=== PATIENT | female | born 1930 | race Caucasian/White ===

== ENCOUNTER 2021-03-27 11:17 | Inpatient (IN) | payer MEDICARE, OTHER ==
--- NOTE | 2021-03-27 11:50 | EDM.PDOC ---
ED HPI GENERAL MEDICAL PROBLEM - General Chief Complaint: General Stated Complaint: FALL Time Seen by Provider: 03/27/21 11:25 Source of Information: Reports: Patient, Family - History of Present Illness INITIAL COMMENTS - FREE TEXT/NARRATIVE: 89-year-old with past medical history significant for lower extremity edema, obesity, recurrent cellulitis, and dependence on supplemental oxygen was brought to the emergency department today by EMS. She normally lives at home alone and is independent. However, she states that she has been falling over the last 2 to 3 days. She is been progressively weak and today slid out of her chair and was not able to get up and called for help. She denies any acute complaints such as fever, chills, upper respiratory symptoms, chest pain, shortness of breath, change in bowel or bladder habits. She does not complain of any orthopedic pain or injuries. He pointed out a large bruise over the right scapula. This appears to be in a healing stage. There was no tenderness to palpation. - Related Data Allergies Allergy/AdvReac Type Severity Reaction Status Date / Time shellfish derived Allergy Cannot Verified 11/01/15 15:07 Remember Home Meds: Home Meds Albuterol [IJP: Albuterol] 2.5 mg NEB Q4HR PRN #25 ml 11/01/15 [Rx] Aspirin [Ecotrin EC] 325 mg PO DAILY 11/01/15 [History] Carboxymethylcellulose Sodium [Refresh Plus 0.5%] 2 drop EYEBOTH BID 11/01/15 [History] Docusate Sodium [Colace] 100 mg PO BEDTIME 11/01/15 [History] Fluconazole [Diflucan] 100 mg PO DAILY PRN 11/01/15 [History] Furosemide 20 mg PO DAILY 11/01/15 [History] Losartan/Hydrochlorothiazide [Losartan-HCTZ 50-12.5 MG] 1 tab PO DAILY 11/01/15 [History] Lutein 10 mg PO DAILY 11/01/15 [History] Metoprolol Succinate 50 mg PO DAILY 11/01/15 [History] Multivitamin [Multi-Vitamin Daily] 1 tab PO DAILY 11/01/15 [History] Past Medical History Cardiovascular History: Reports: Hypertension Respiratory History: Reports: SOB [employer] History: Reports: Other [employer] History: Oncologic (Cancer) History: Reports: Breast - Past Surgical History Oncologic Surgical History: Reports: Other (See Below) Social & Family History - Family History Family Medical History: No Pertinent Family History ED ROS GENERAL - Review of Systems Review Of Systems: See Below Constitutional: Reports: Weakness HEENT: Reports: No Symptoms Respiratory: Reports: No Symptoms Cardiovascular: Reports: No Symptoms Endocrine: Reports: No Symptoms GI/Abdominal: Reports: No Symptoms : Reports: No Symptoms Musculoskeletal: Reports: No Symptoms Skin: Reports: No Symptoms Neurological: Reports: No Symptoms Psychiatric: Reports: No Symptoms Hematologic/Lymphatic: Reports: No Symptoms Immunologic: Reports: No Symptoms ED EXAM, GENERAL - Physical Exam Exam: See Below Exam Limited By: No Limitations General Appearance: Alert, Mild Distress Eye Exam: Bilateral Eye: EOMI Head: Atraumatic, Normocephalic Neck: Normal Inspection Respiratory/Chest: Decreased Breath Sounds, Crackles Cardiovascular: Gallop/S3, Other (Heart sounds are distant and difficult to auscultate) GI/Abdominal: Normal Bowel Sounds, Soft, Non-Tender Back Exam: Normal Inspection Extremities: Pedal Edema, Other (Significant bilateral lower extremity pitting edema with swelling) Neurological: Alert, Oriented, Normal Cognition, Other (Patient is generally weak but she was able to use her upper body strength to help us pull her up out of the bed. She gripped my fingers with both hands and pulled herself up with my help) Psychiatric: Depressed Mood Skin Exam: Warm, Dry Course - Vital Signs Text/Narrative:: Review of chest x-ray shows patchy consolidations consistent with pneumonia in the left lower lung. Physical exam is consistent with this diagnosis. Review of EKG is difficult secondary to very poor baseline quality and patient movement. However, you have labs shows hyperkalemia at 6.3. Patient will begin treatment for community-acquired pneumonia with ceftriaxone and azithromycin. She will receive calcium gluconate, IV fluids, and Lasix for hyperkalemia. Patient will be admitted with telemetry for further treatment and monitoring. - Orders/Labs/Meds Orders: Active Orders 24 hr Category Date Time Status Patient Status Manage Transfer [TRANSFER] Routine ADT 03/27/21 13:30 Active Patient Status [ADT] Routine ADT 03/27/21 13:34 Active Antiembolic Devices [RC] .Routine Care 03/27/21 13:35 Active EKG Documentation Completion [RC] ASDIRECTED Care 03/27/21 11:45 Active Insert Urinary Catheter [OM.PC] Q24H Care 03/27/21 11:30 Ordered Oxygen Therapy [RC] CONTINUOUS Care 03/27/21 13:35 Active Pulse Oximetry [RC] CONTINUOUS Care 03/27/21 13:38 Active Urinary Catheter Assessment [RC] QSHIFT Care 03/27/21 11:30 Active VTE/DVT Education [RC] Click to Edit Care 03/27/21 13:35 Active Vital Signs [RC] Q4H Care 03/27/21 13:34 Active Heart Healthy Diet [DIET] Diet 03/27/21 Dinner Ordered Azithromycin [Zithromax] 500 mg Med 03/27/21 12:47 Active Sodium Chloride 0.9% [Normal Saline AdvBag] 250 ml IV ONETIME Sodium Chloride 0.9% [Normal Saline] 1,000 ml Med 03/27/21 12:45 Active IV ASDIRECTED DVT/VTE Prophylaxis Reflex [OM.PC] Per Unit Routine Oth 03/27/21 13:34 Ordered Resuscitation Status Routine Resus Stat 03/27/21 13:32 Ordered EKG 12 Lead [EK] Routine Ther 03/27/21 11:44 Ordered Medication Orders Sodium Chloride (Normal Saline) 1,000 mls @ 125 mls/hr IV ASDIRECTED ROBERT Azithromycin 500 mg/ Sodium (Chloride) 250 mls @ 250 mls/hr IV ONETIME ONE Stop: 03/27/21 13:46 Last Admin: 03/27/21 12:58 Dose: 250 mls/hr Documented by: DIFFCAL Labs: Laboratory Tests 03/27/21 03/27/21 03/27/21 Range/Units 11:30 11:44 11:44 WBC 6.8 (3.0-10.3) x10-3/uL RBC 3.46 L (3.60-5.20) x10(6)uL Hgb 10.7 L (11.4-15.5) g/dL Hct 34.6 (34.2-48.2) % MCV 99.8 (76.7-100.5) fL MCH 30.9 (23.9-33.9) pg MCHC 31.0 L (31.9-34.8) g/dL RDW 14.3 (12.3-16.5) % Plt Count 168 (151-488) x10(3)uL MPV 7.6 (7.1-12.4) fL Neut % (Auto) 75.1 (30.8-76.2) % Lymph % (Auto) 13.4 L (18.4-52.1) % Parke % (Auto) 9.6 (4.4-15.7) % Eos % (Auto) 1.3 (0.6-8.1) % Baso % (Auto) 0.6 (0.2-1.5) % Neut # (Auto) 5.1 (1.5-6.3) x10-3/uL Lymph # (Auto) 0.9 L (1.0-4.4) x10-3/uL Parke # (Auto) 0.7 (0.3-1.0) x10-3/uL Eos # (Auto) 0.1 (0.0-0.8) x10-3/uL Baso # (Auto) 0.0 (0.0-0.1) x10-3/uL Sodium 142 (135-145) mmol/L Potassium 6.3 H* (3.5-5.3) mmol/L Chloride 101 (100-110) mmol/L Carbon Dioxide 43 H* (21-32) mmol/L BUN 51 H (7-18) mg/dL Creatinine 1.8 H (0.55-1.02) mg/dL Est Cr Clr Drug Dosing TNP Estimated GFR (MDRD) 26 L (>60) BUN/Creatinine Ratio 28.3 H (9-20) Glucose 160 H (80-116) mg/dL Calcium 9.6 (8.6-10.2) mg/dL Total Bilirubin 0.3 (0.1-1.3) mg/dL AST 20 (5-25) IU/L ALT 24 (12-36) U/L Alkaline Phosphatase 66 (56-112) IU/L Troponin I (4.0-60.3) pg/mL NT-Pro-B Natriuret Pep (<=450) pg/mL Total Protein 7.1 (6.0-8.0) g/dL Albumin 2.9 (2.9-4.5) g/dL Globulin 4.2 g/dL Albumin/Globulin Ratio 0.7 Urine Color (YELLOW) Urine Appearance (CLEAR) Urine pH (5.0-6.5) Ur Specific [place] (1.010-1.025) Urine Protein (NEGATIVE) mg/dL Urine Glucose (UA) (NORMAL) mg/dL Urine Ketones (NEGATIVE) mg/dL Urine Occult Blood (NEGATIVE) Urine Nitrite (NEGATIVE) Urine Bilirubin (NEGATIVE) Urine Urobilinogen (NEGATIVE) mg/dL Ur Leukocyte Esterase (NEGATIVE) U Hyaline Cast (Auto) (NS) Urine RBC (0-5) Urine WBC (0-5) Ur Squamous Epith Cells (NS,R,O) Urine Bacteria (NS) Influenza Type A RNA Negative (NEGATIVE) Influenza Type B RNA Negative (NEGATIVE) SARS-CoV-2 RNA (SHERON) Negative (NEGATIVE) 03/27/21 03/27/21 Range/Units 11:44 12:00 WBC (3.0-10.3) x10-3/uL RBC (3.60-5.20) x10(6)uL Hgb (11.4-15.5) g/dL Hct (34.2-48.2) % MCV (76.7-100.5) fL MCH (23.9-33.9) pg MCHC (31.9-34.8) g/dL RDW (12.3-16.5) % Plt Count (151-488) x10(3)uL MPV (7.1-12.4) fL Neut % (Auto) (30.8-76.2) % Lymph % (Auto) (18.4-52.1) % Parke % (Auto) (4.4-15.7) % Eos % (Auto) (0.6-8.1) % Baso % (Auto) (0.2-1.5) % Neut # (Auto) (1.5-6.3) x10-3/uL Lymph # (Auto) (1.0-4.4) x10-3/uL Parke # (Auto) (0.3-1.0) x10-3/uL Eos # (Auto) (0.0-0.8) x10-3/uL Baso # (Auto) (0.0-0.1) x10-3/uL Sodium (135-145) mmol/L Potassium (3.5-5.3) mmol/L Chloride (100-110) mmol/L Carbon Dioxide (21-32) mmol/L BUN (7-18) mg/dL Creatinine (0.55-1.02) mg/dL Est Cr Clr Drug Dosing Estimated GFR (MDRD) (>60) BUN/Creatinine Ratio (9-20) Glucose (80-116) mg/dL Calcium (8.6-10.2) mg/dL Total Bilirubin (0.1-1.3) mg/dL AST (5-25) IU/L ALT (12-36) U/L Alkaline Phosphatase (56-112) IU/L Troponin I 14.6 (4.0-60.3) pg/mL NT-Pro-B Natriuret Pep 313 (<=450) pg/mL Total Protein (6.0-8.0) g/dL Albumin (2.9-4.5) g/dL Globulin g/dL Albumin/Globulin Ratio Urine Color Yellow (YELLOW) Urine Appearance Clear (CLEAR) Urine pH 5.0 (5.0-6.5) Ur Specific [place] 1.015 (1.010-1.025) Urine Protein Negative (NEGATIVE) mg/dL Urine Glucose (UA) Normal (NORMAL) mg/dL Urine Ketones Negative (NEGATIVE) mg/dL Urine Occult Blood Trace (NEGATIVE) Urine Nitrite Negative (NEGATIVE) Urine Bilirubin Negative (NEGATIVE) Urine Urobilinogen Normal (NEGATIVE) mg/dL Ur Leukocyte Esterase Negative (NEGATIVE) U Hyaline Cast (Auto) Moderate H (NS) Urine RBC 30-40 H (0-5) Urine WBC 0-5 (0-5) Ur Squamous Epith Cells Occasional (NS,R,O) Urine Bacteria Few H (NS) Influenza Type A RNA (NEGATIVE) Influenza Type B RNA (NEGATIVE) SARS-CoV-2 RNA (SHERON) (NEGATIVE) Meds: Medications Generic Name Dose Route Start Last Admin Trade Name Freq PRN Reason Stop Dose Admin Sodium Chloride 1,000 mls @ 125 mls/hr 03/27/21 12:45 Normal Saline IV ASDIRECTED ROBERT Azithromycin 500 mg/ Sodium 250 mls @ 250 mls/hr 03/27/21 12:47 03/27/21 12:58 Chloride IV 03/27/21 13:46 250 mls/hr ONETIME ONE Administration Discontinued Medications Generic Name Dose Route Start Last Admin Trade Name Freq PRN Reason Stop Dose Admin Calcium Gluconate 1 gm 03/27/21 12:45 03/27/21 13:00 Calcium Gluconate 10% 1 Gm/10 Ml Sdv IVPUSH 03/27/21 12:46 1 gm ONETIME ONE Administration Furosemide 40 mg 03/27/21 12:45 03/27/21 12:59 Furosemide 40 Mg/4 Ml Vial IVPUSH 03/27/21 12:46 40 mg NOW ONE Administration Ceftriaxone Sodium 1 gm/ 50 mls @ 200 mls/hr 03/27/21 12:46 03/27/21 13:16 Sodium Chloride IV 03/27/21 13:00 200 mls/hr ONETIME ONE Administration Departure - Departure Time of Disposition: 13:44 Disposition: Admitted As Inpatient 67 Condition: Fair Clinical Impression: Community acquired pneumonia, Hyperkalemia, Acute kidney injury, Supplemental oxygen dependent, Hypercapnia - Discharge Information *PRESCRIPTION DRUG MONITORING PROGRAM REVIEWED*: Not Applicable *COPY OF PRESCRIPTION DRUG MONITORING REPORT IN PATIENT NATALIA: Not Applicable Forms: ED Department Discharge - My Orders Last 24 Hours: My Active Orders 03/27/21 11:30 Insert Urinary Catheter [OM.PC] Q24H Urinary Catheter Assessment [RC] QSHIFT 03/27/21 11:44 EKG 12 Lead [EK] Routine 03/27/21 11:45 EKG Documentation Completion [RC] ASDIRECTED 03/27/21 12:45 Sodium Chloride 0.9% [Normal Saline] 1,000 ml IV ASDIRECTED 03/27/21 12:47 Azithromycin [Zithromax] 500 mg Sodium Chloride 0.9% [Normal Saline AdvBag] 250 ml IV ONETIME 03/27/21 13:30 Patient Status Manage Transfer [TRANSFER] Routine 03/27/21 13:32 Resuscitation Status Routine 03/27/21 13:34 Patient Status [ADT] Routine Vital Signs [RC] Q4H DVT/VTE Prophylaxis Reflex [OM.PC] Per Unit Routine 03/27/21 13:35 Antiembolic Devices [RC] .Routine Oxygen Therapy [RC] CONTINUOUS VTE/DVT Education [RC] Click to Edit 03/27/21 13:38 Pulse Oximetry [RC] CONTINUOUS 03/27/21 Dinner Heart Healthy Diet [DIET] - Assessment/Plan Last 24 Hours: My Active Orders 03/27/21 11:30 Insert Urinary Catheter [OM.PC] Q24H Urinary Catheter Assessment [RC] QSHIFT 03/27/21 11:44 EKG 12 Lead [EK] Routine 03/27/21 11:45 EKG Documentation Completion [RC] ASDIRECTED 03/27/21 12:45 Sodium Chloride 0.9% [Normal Saline] 1,000 ml IV ASDIRECTED 03/27/21 12:47 Azithromycin [Zithromax] 500 mg Sodium Chloride 0.9% [Normal Saline AdvBag] 250 ml IV ONETIME 03/27/21 13:30 Patient Status Manage Transfer [TRANSFER] Routine 03/27/21 13:32 Resuscitation Status Routine 03/27/21 13:34 Patient Status [ADT] Routine Vital Signs [RC] Q4H DVT/VTE Prophylaxis Reflex [OM.PC] Per Unit Routine 03/27/21 13:35 Antiembolic Devices [RC] .Routine Oxygen Therapy [RC] CONTINUOUS VTE/DVT Education [RC] Click to Edit 03/27/21 13:38 Pulse Oximetry [RC] CONTINUOUS 03/27/21 Dinner Heart Healthy Diet [DIET]
[2021-03-27 12:34] LABS: CORONAVIRUS COVID-19 NAA NEGATIVE (NEGATIVE)
[2021-03-27] MEDS ORDERED: Calcium Gluconate 10% 1 GM/10 ML SDV IVPUSH ONE ×2 (12:45→23:35)
[2021-03-27] MEDS ORDERED: Sodium Chloride 0.9% 1,000 ML IV SCH (12:45)
[2021-03-27] MEDS ORDERED: Furosemide 40 MG/4 ML VIAL IVPUSH ONE ×2 (12:45→23:37)
[2021-03-27] MEDS ORDERED: cefTRIAXone 1 GM in Sodium Chloride 0.9% 50 ML IV ONE (12:46)
[2021-03-27] MEDS ORDERED: Azithromycin 500 MG in Sodium Chloride 0.9% 250 ML IV ONE (12:47)
--- NOTE | 2021-03-27 13:20 | CR ---
INDICATION: Cough. CHEST, ONE VIEW: AP upright portable view of the chest, 03/27/21, was compared with 02/25/10, and revealed increased density at the left costophrenic angle and behind the heart with blunting of the costophrenic angle, suggesting the possibility of minimal pneumonia and pleuritis in that area. Pulmonary vasculature in the upper lung garg appears slightly prominent, especially on the left, raising the question of a mild or early CHF. This should be correlated clinically. This is especially true since the heart is not grossly enlarged. However, other cause of pulmonary vascular congestion could be present. The aorta is mildly tortuous. The lungs appear to be somewhat hyperaerated. IMPRESSION: 1. Pneumonia and pleuritis suggested at the left costophrenic angle and lower lobe. 2. ASHD with possible mild CHF, although other cause of pulmonary vascular congestion should be considered. 3. Possible COPD also suggested on previous chest x-ray. Report was called to Dr. Davis at approximately 1255 hours, 03/27/21. [facility]
--- NOTE | 2021-03-27 13:50 | PCM.EKG ---
#1 Interpretation EKG Date: 03/27/21 Time: 12:21 EKG Interpretation Comments: This EKG is unreliable due to poor baseline quality and patient movement.
--- NOTE | 2021-03-27 15:23 | PCM.EKG ---
#1 Interpretation EKG Date: 03/27/21 Time: 15:11 EKG Interpretation Comments: Normal sinus rhythm, rate 65, likely normal axis, probable right bundle branch block, however, still poor baseline quality though significantly improved from previous EKG, peaked T waves prominent in the anterior lateral and lateral leads, poor baseline quality makes ST segment difficult to modify but there are no obvious ST-T segment abnormalities in contiguous leads
--- NOTE | 2021-03-27 18:25 | PCM.HP.2 ---
H&P History of Present Illness - General Date of Service: 03/27/21 Admit Problem/Dx: Admission Diagnosis/Problem Admission Diagnosis/Problem Weakness Source of Information: Patient, Family, Provider - History of Present Illness Initial Comments - Free Text/Narative: Routine by the family, because of generalized weakness, frequent falls and jitteriness. For about a week she's been more dependent at home. She's had no GI or urinary symptoms, and there was no report of any loss of consciousness or he ad injury due to falls. Tonight she complains of knee pain. The restlessness, worsening last 2 days, she'll sleep well. Additionally she's had muscle twitches which are unexplained. Luisa has a history of COPD, CHF, obesity, hypertension, and lower extremity edema, with recurrent cellulitis. right knee Pain Score (Numeric/FACES): 5 - Related Data Allergies/Adverse Reactions: Allergies Allergy/AdvReac Type Severity Reaction Status Date / Time shellfish derived Allergy Cannot Verified 11/01/15 15:07 Remember Home Medications: Home Meds Carboxymethylcellulose Sodium [Refresh Plus 0.5%] 2 drop EYEBOTH BID PRN 11/01/15 [History] Docusate Sodium [Colace] 100 mg PO BID 11/01/15 [History] Fluconazole [Diflucan] 100 mg PO MOWEFR 11/01/15 [History] Lutein 10 mg PO BEDTIME 11/01/15 [History] Acetaminophen [Tylenol Extra Strength] 500 mg PO DAILY 03/27/21 [History] Albuterol Sulfate 3 ml IH Q6H PRN 03/27/21 [History] Albuterol [Proventil HFA] 2 puff IH Q6H PRN 03/27/21 [History] Amoxicillin 500 mg PO BID 03/27/21 [History] Aspirin [Halfprin] 81 mg PO DAILY 03/27/21 [History] Cholecalciferol (Vitamin D3) [Vitamin D3] 50 mcg PO DAILY@1200 03/27/21 [History] Cyanocobalamin (Vitamin B-12) [Vitamin B-12] 1,000 mcg PO DAILY 03/27/21 [History] Fluticasone Propionate [Flonase] 2 spray NASBOTH DAILY PRN 03/27/21 [History] Magnesium Chloride [Mag-64] 64 mg PO DAILY@1200 03/27/21 [History] Multivit-Min/FA/Lycopen/Lutein [Centrum Silver Tablet] 1 tab PO DAILY 03/27/21 [History] Potassium Chloride [Klor-Con 10] 10 meq PO BIDMEALS 03/27/21 [History] Sodium Chloride 0.65% [[place] Saline] 1 spray NASBOTH ASDIRECTED PRN 03/27/21 [History] Torsemide 40 mg PO DAILY 03/27/21 [History] carvediloL [Carvedilol] 12.5 mg PO BIDMEALS 03/27/21 [History] Past Medical History HEENT History: Reports: Impaired Vision Cardiovascular History: Reports: Heart Failure, Hypertension Respiratory History: Reports: SOB Genitourinary History: Reports: None [employer] HISTORIAN History: Reports: Other OB/BYN History: Musculoskeletal History: Reports: None Neurological History: Reports: None Psychiatric History: Reports: None Endocrine/Metabolic History: Reports: Obesity/BMI 30+ Hematologic History: Reports: None Oncologic (Cancer) History: Reports: Breast, Other (See Below) Other Oncologic History: vaginal Dermatologic History: Reports: Chronic Cellulitis - Infectious Disease History Infectious Disease History: Reports: Chicken Pox - Past Surgical History Cardiovascular Surgical History: Reports: None Respiratory Surgical History: Reports: None Female Surgical History: Reports: Breast Biopsy, Hysterectomy Neurological Surgical History: Reports: None Musculoskeletal Surgical History: Reports: None Oncologic Surgical History: Reports: Other (See Below) Other Oncologic Surgeries/Procedures: LUMPECTOMY Dermatological Surgical History: Reports: None Social & Family History - Family History Family Medical History: No Pertinent Family History - Tobacco Use Tobacco Use Status *Q: Never Tobacco User Second Hand Smoke Exposure: No - Caffeine Use Caffeine Use: Reports: Coffee - Recreational Drug Use Recreational Drug Use: No H&P Review of Systems - Review of Systems: Review Of Systems: Comprehensive ROS is negative, except as noted in HPI. Exam - Exam Exam: See Below - Vital Signs Vital Signs: Last Vital Signs Temp 96.4 F L 03/27/21 13:55 Pulse 64 03/27/21 15:34 Resp 22 H 03/27/21 15:34 BP 138/50 L 03/27/21 13:55 Pulse Ox 91 L 03/27/21 15:34 Weight: 125.055 kg - Exam Quality Assessment: Supplemental Oxygen General: Alert, Oriented, 4 HEENT: PERRLA, Hearing Intact, Mucosa Moist & [place], Nares Patent, Normal Nasal Septum, Posterior Pharynx Clear, Conjunctiva Clear, EOMI, EACs Clear, TMs Clear Neck: Supple, Trachea Midline, 2 Lungs: Normal Respiratory Effort, Rales Cardiovascular: Regular Rate, Regular Rhythm GI/Abdominal Exam: Normal Bowel Sounds, Soft, Non-Tender, No Organomegaly, No Distention, No Abnormal Bruit, No Mass, Pelvis Stable (Female) Exam: Deferred Rectal (Female) Exam: Deferred Back Exam: Normal Inspection, Full Range of Motion, NT Extremities: Normal Capillary Refill, Pedal Edema, Leg Pain Skin: Warm, Dry, Intact Neurological: Cranial Nerves Intact, Reflexes Equal Bilateral Neuro Extensive - Mental Status: Alert, Oriented x3, Normal Mood/Affect, Normal Cognition Neuro Extensive - Motor, Sensory, Reflexes: CN II-XII Intact, Normal Gait, Normal Reflexes Psychiatric: Alert, Normal Affect, Normal Mood - Patient Data Lab Results Last 24 hrs: Laboratory Results - last 24 hr 03/27/21 03/27/21 03/27/21 Range/Units 11:30 11:44 11:44 WBC 6.8 (3.0-10.3) x10-3/uL RBC 3.46 L (3.60-5.20) x10(6)uL Hgb 10.7 L (11.4-15.5) g/dL Hct 34.6 (34.2-48.2) % MCV 99.8 (76.7-100.5) fL MCH 30.9 (23.9-33.9) pg MCHC 31.0 L (31.9-34.8) g/dL RDW 14.3 (12.3-16.5) % Plt Count 168 (151-488) x10(3)uL MPV 7.6 (7.1-12.4) fL Neut % (Auto) 75.1 (30.8-76.2) % Lymph % (Auto) 13.4 L (18.4-52.1) % [place] % (Auto) 9.6 (4.4-15.7) % Eos % (Auto) 1.3 (0.6-8.1) % Baso % (Auto) 0.6 (0.2-1.5) % Neut # (Auto) 5.1 (1.5-6.3) x10-3/uL Lymph # (Auto) 0.9 L (1.0-4.4) x10-3/uL [place] # (Auto) 0.7 (0.3-1.0) x10-3/uL Eos # (Auto) 0.1 (0.0-0.8) x10-3/uL Baso # (Auto) 0.0 (0.0-0.1) x10-3/uL Sodium 142 (135-145) mmol/L Potassium 6.3 H* (3.5-5.3) mmol/L Chloride 101 (100-110) mmol/L Carbon Dioxide 43 H* (21-32) mmol/L BUN 51 H (7-18) mg/dL Creatinine 1.8 H (0.55-1.02) mg/dL Est Cr Clr Drug Dosing TNP Estimated GFR (MDRD) 26 L (>60) BUN/Creatinine Ratio 28.3 H (9-20) Glucose 160 H (80-116) mg/dL Calcium 9.6 (8.6-10.2) mg/dL Total Bilirubin 0.3 (0.1-1.3) mg/dL AST 20 (5-25) IU/L ALT 24 (12-36) U/L Alkaline Phosphatase 66 (56-112) IU/L Troponin I (4.0-60.3) pg/mL NT-Pro-B Natriuret Pep (<=450) pg/mL Total Protein 7.1 (6.0-8.0) g/dL Albumin 2.9 (2.9-4.5) g/dL Globulin 4.2 g/dL Albumin/Globulin Ratio 0.7 Urine Color (YELLOW) Urine Appearance (CLEAR) Urine pH (5.0-6.5) Ur Specific [place] (1.010-1.025) Urine Protein (NEGATIVE) mg/dL Urine Glucose (UA) (NORMAL) mg/dL Urine Ketones (NEGATIVE) mg/dL Urine Occult Blood (NEGATIVE) Urine Nitrite (NEGATIVE) Urine Bilirubin (NEGATIVE) Urine Urobilinogen (NEGATIVE) mg/dL Ur Leukocyte Esterase (NEGATIVE) U Hyaline Cast (Auto) (NS) Urine RBC (0-5) Urine WBC (0-5) Ur Squamous Epith Cells (NS,R,O) Urine Bacteria (NS) Influenza Type A RNA Negative (NEGATIVE) Influenza Type B RNA Negative (NEGATIVE) SARS-CoV-2 RNA (SHERON) Negative (NEGATIVE) 03/27/21 03/27/21 03/27/21 Range/Units 11:44 12:00 16:17 WBC (3.0-10.3) x10-3/uL RBC (3.60-5.20) x10(6)uL Hgb (11.4-15.5) g/dL Hct (34.2-48.2) % MCV (76.7-100.5) fL MCH (23.9-33.9) pg MCHC (31.9-34.8) g/dL RDW (12.3-16.5) % Plt Count (151-488) x10(3)uL MPV (7.1-12.4) fL Neut % (Auto) (30.8-76.2) % Lymph % (Auto) (18.4-52.1) % [place] % (Auto) (4.4-15.7) % Eos % (Auto) (0.6-8.1) % Baso % (Auto) (0.2-1.5) % Neut # (Auto) (1.5-6.3) x10-3/uL Lymph # (Auto) (1.0-4.4) x10-3/uL [place] # (Auto) (0.3-1.0) x10-3/uL Eos # (Auto) (0.0-0.8) x10-3/uL Baso # (Auto) (0.0-0.1) x10-3/uL Sodium (135-145) mmol/L Potassium 5.9 H (3.5-5.3) mmol/L Chloride (100-110) mmol/L Carbon Dioxide (21-32) mmol/L BUN (7-18) mg/dL Creatinine (0.55-1.02) mg/dL Est Cr Clr Drug Dosing Estimated GFR (MDRD) (>60) BUN/Creatinine Ratio (9-20) Glucose (80-116) mg/dL Calcium (8.6-10.2) mg/dL Total Bilirubin (0.1-1.3) mg/dL AST (5-25) IU/L ALT (12-36) U/L Alkaline Phosphatase (56-112) IU/L Troponin I 14.6 (4.0-60.3) pg/mL NT-Pro-B Natriuret Pep 313 (<=450) pg/mL Total Protein (6.0-8.0) g/dL Albumin (2.9-4.5) g/dL Globulin g/dL Albumin/Globulin Ratio Urine Color Yellow (YELLOW) Urine Appearance Clear (CLEAR) Urine pH 5.0 (5.0-6.5) Ur Specific [place] 1.015 (1.010-1.025) Urine Protein Negative (NEGATIVE) mg/dL Urine Glucose (UA) Normal (NORMAL) mg/dL Urine Ketones Negative (NEGATIVE) mg/dL Urine Occult Blood Trace (NEGATIVE) Urine Nitrite Negative (NEGATIVE) Urine Bilirubin Negative (NEGATIVE) Urine Urobilinogen Normal (NEGATIVE) mg/dL Ur Leukocyte Esterase Negative (NEGATIVE) U Hyaline Cast (Auto) Moderate H (NS) Urine RBC 30-40 H (0-5) Urine WBC 0-5 (0-5) Ur Squamous Epith Cells Occasional (NS,R,O) Urine Bacteria Few H (NS) Influenza Type A RNA (NEGATIVE) Influenza Type B RNA (NEGATIVE) SARS-CoV-2 RNA (SHERON) (NEGATIVE) 03/27/21 Range/Units 16:17 WBC (3.0-10.3) x10-3/uL RBC (3.60-5.20) x10(6)uL Hgb (11.4-15.5) g/dL Hct (34.2-48.2) % MCV (76.7-100.5) fL MCH (23.9-33.9) pg MCHC (31.9-34.8) g/dL RDW (12.3-16.5) % Plt Count (151-488) x10(3)uL MPV (7.1-12.4) fL Neut % (Auto) (30.8-76.2) % Lymph % (Auto) (18.4-52.1) % [place] % (Auto) (4.4-15.7) % Eos % (Auto) (0.6-8.1) % Baso % (Auto) (0.2-1.5) % Neut # (Auto) (1.5-6.3) x10-3/uL Lymph # (Auto) (1.0-4.4) x10-3/uL [place] # (Auto) (0.3-1.0) x10-3/uL Eos # (Auto) (0.0-0.8) x10-3/uL Baso # (Auto) (0.0-0.1) x10-3/uL Sodium (135-145) mmol/L Potassium (3.5-5.3) mmol/L Chloride (100-110) mmol/L Carbon Dioxide (21-32) mmol/L BUN (7-18) mg/dL Creatinine (0.55-1.02) mg/dL Est Cr Clr Drug Dosing Estimated GFR (MDRD) (>60) BUN/Creatinine Ratio (9-20) Glucose (80-116) mg/dL Calcium (8.6-10.2) mg/dL Total Bilirubin (0.1-1.3) mg/dL AST (5-25) IU/L ALT (12-36) U/L Alkaline Phosphatase (56-112) IU/L Troponin I 16.1 (4.0-60.3) pg/mL NT-Pro-B Natriuret Pep (<=450) pg/mL Total Protein (6.0-8.0) g/dL Albumin (2.9-4.5) g/dL Globulin g/dL Albumin/Globulin Ratio Urine Color (YELLOW) Urine Appearance (CLEAR) Urine pH (5.0-6.5) Ur Specific [place] (1.010-1.025) Urine Protein (NEGATIVE) mg/dL Urine Glucose (UA) (NORMAL) mg/dL Urine Ketones (NEGATIVE) mg/dL Urine Occult Blood (NEGATIVE) Urine Nitrite (NEGATIVE) Urine Bilirubin (NEGATIVE) Urine Urobilinogen (NEGATIVE) mg/dL Ur Leukocyte Esterase (NEGATIVE) U Hyaline Cast (Auto) (NS) Urine RBC (0-5) Urine WBC (0-5) Ur Squamous Epith Cells (NS,R,O) Urine Bacteria (NS) Influenza Type A RNA (NEGATIVE) Influenza Type B RNA (NEGATIVE) SARS-CoV-2 RNA (SHERON) (NEGATIVE) Result Diagrams: 03/27/21 11:44 03/27/21 16:17 Sepsis Event Note - Evaluation Sepsis Screening Result: No Definite Risk - Focused Exam Vital Signs: Vital Signs Temp Pulse Resp BP Pulse Ox Pulse Ox 03/27/21 15:34 64 22 H 91 L 03/27/21 13:55 96.4 F L 61 16 138/50 L 94 L 94 L 03/27/21 11:45 96.4 F L 63 18 154/70 H 96 - Problem List (1) Obesity SNOMED Code(s): 391950142, 765790256 ICD Code: E66.9 - OBESITY, UNSPECIFIED Status: Acute Current Visit: Yes Qualifiers: Obesity type: due to excess calories (2) CHF (congestive heart failure) SNOMED Code(s): 71812370 ICD Code: I50.9 - HEART FAILURE, UNSPECIFIED Status: Acute Current Visit: Yes Qualifiers: Heart failure type: diastolic (3) CO2 narcosis SNOMED Code(s): 833955911, 568076041 ICD Code: R06.89 - OTHER ABNORMALITIES OF BREATHING Status: Acute Current Visit: Yes (4) COPD (chronic obstructive pulmonary disease) SNOMED Code(s): 45325528 ICD Code: J44.9 - CHRONIC OBSTRUCTIVE PULMONARY DISEASE, UNSPECIFIED Status: Acute Current Visit: Yes Qualifiers: COPD type: chronic bronchitis (5) Acute kidney injury SNOMED Code(s): 68133667, 88579588 ICD Code: N17.9 - ACUTE KIDNEY FAILURE, UNSPECIFIED Status: Acute Current Visit: Yes (6) Community acquired pneumonia SNOMED Code(s): 160453064 ICD Code: J18.9 - PNEUMONIA, UNSPECIFIED ORGANISM Status: Acute Current Visit: Yes Qualifiers: Laterality: left (7) Hypercapnia SNOMED Code(s): 20433645 ICD Code: R06.89 - OTHER ABNORMALITIES OF BREATHING Status: Acute Current Visit: Yes (8) Hyperkalemia SNOMED Code(s): 19479137 ICD Code: E87.5 - HYPERKALEMIA Status: Acute Current Visit: Yes (9) Supplemental oxygen dependent SNOMED Code(s): 621673635144 ICD Code: Z99.81 - DEPENDENCE ON SUPPLEMENTAL OXYGEN Status: Acute Current Visit: Yes Problem List Initiated/Reviewed/Updated: Yes Orders Last 24hrs: Active Orders 24 hr Category Date Time Status Patient Status [ADT] Routine ADT 03/27/21 13:34 Active Mitchell Catheter Insertion [Insert Urinary Catheter] [OM. Care 03/28/21 13:55 Ordered PC] Q24H Mitchell Catheter Insertion [Insert Urinary Catheter] [OM. Care 03/29/21 13:55 Ordered PC] Q24H Mitchell Catheter Insertion [Insert Urinary Catheter] [OM. Care 03/30/21 13:55 Ordered PC] Q24H Mitchell Catheter Insertion [Insert Urinary Catheter] [OM. Care 03/31/21 13:55 Ordered PC] Q24H Mitchell Catheter Insertion [Insert Urinary Catheter] [OM. Care 04/01/21 13:55 Ordered PC] Q24H Mitchell Catheter Insertion [Insert Urinary Catheter] [OM. Care 04/02/21 13:55 Ordered PC] Q24H [place] Catheter Insertion [Insert Urinary Catheter] [OM. Care 03/27/21 13:55 Ordered PC] Q24H Oxygen Therapy [RC] CONTINUOUS Care 03/27/21 13:35 Active Pulse Oximetry [RC] CONTINUOUS Care 03/27/21 13:38 Active Telemetry Monitoring [Cardiac Monitoring] [RC] .As Care 03/27/21 16:48 Active Directed Urinary Catheter Assessment [RC] QSHIFT Care 03/27/21 14:53 Active VTE/DVT Education [RC] Click to Edit Care 03/27/21 13:35 Active Vital Signs [RC] 08,12,16,20,00,04 Care 03/27/21 13:34 Active Heart Healthy Diet [DIET] Diet 03/27/21 Dinner Ordered BASIC METABOLIC PANEL,BMP [CHEM] AM Lab 03/28/21 05:11 Ordered CBC WITH AUTO DIFF [HEME] AM Lab 03/28/21 05:11 Ordered PRO B-TYPE NATRIUR PEPT,BNPPRO [CHEM] DAILY Lab 03/28/21 05:11 Ordered Sodium Chloride 0.9% [Normal Saline] 1,000 ml Med 03/27/21 12:45 Active IV ASDIRECTED DVT/VTE Prophylaxis Reflex [OM.PC] Per Unit Routine Oth 03/27/21 13:34 Ordered SCD [Sequential Compression Device] [OM.PC] Routine Oth 03/27/21 15:00 Ordered Resuscitation Status Routine Resus Stat 03/27/21 13:32 Ordered EKG 12 Lead [EK] Routine Ther 03/27/21 11:44 Ordered EKG 12 Lead [EK] Routine Ther 03/27/21 15:00 Ordered Medication Orders Sodium Chloride (Normal Saline) 1,000 mls @ 125 mls/hr IV ASDIRECTED [facility] Last Admin: 03/27/21 13:30 Dose: 125 mls/hr Documented by: MATTHIEU Assessment/Plan Comment:: I suggest IV antibiotics, IV steroids and DuoNeb when necessary. Plan to stop fluids because of CHF. Repeat labs in the morning. Continue oxygen supplementation by nasal prongs.
[2021-03-27] MEDS ORDERED: Sodium Chloride 0.65% Nasal Spray 45 ML Bottle NASBOTH PRN (18:26)
[2021-03-27] MEDS ORDERED: Fluticasone Propionate Nasal Spray 16 GM Bottle NASBOTH PRN (18:26)
[2021-03-27] MEDS ORDERED: Carboxymethylcellulose Sodium 0.5% Ophth Soln 15 ML Bottle EYEBOTH PRN (18:26)
[2021-03-27] MEDS ORDERED: Morphine 2 MG/ML SYRINGE IVPUSH PRN (18:34)
[2021-03-27] MEDS ORDERED: LORazepam 2 MG/ML SDV IVPUSH PRN (18:35)
[2021-03-27] MEDS: methylPREDNISolone Sodium Succinate 125 MG/2 ML SDV IVPUSH SCH (18:55)
[2021-03-27] MEDS ORDERED: Albuterol/Ipratropium 3.0-0.5 MG/3 ML Neb Soln NEB SCH (21:00)
[2021-03-27] MEDS: Albuterol/Ipratropium 3.0-0.5 MG/3 ML Neb Soln NEB SCH (21:00)
[2021-03-27] MEDS ORDERED: diphenhydrAMINE 50 MG/ML SDV IVPUSH ONE (21:49)
[2021-03-27] MEDS: Docusate Sodium 100 MG Cap PO SCH (22:16)
[2021-03-27] MEDS ORDERED: Sodium Chloride 0.9% 500 ML IV ONE (23:20)
[2021-03-27] MEDS ORDERED: Naloxone 0.4 MG/ML SDV IVPUSH PRN (23:21)
[2021-03-28] MEDS: methylPREDNISolone Sodium Succinate 125 MG/2 ML SDV IVPUSH SCH ×4 (00:30→17:54)
--- NOTE | 2021-03-28 00:48 | PCM.SN.2 ---
- Free Text/Narrative Note: I was contacted and asked to examine the patient at approximately 2200 because of shaking. She had become obtunded and was not speaking and not responding appropriately and had bilateral shaking of the upper and lower extremities. The shaking was intermittent and somewhat asymmetrical. She Had been given 2 mg of morphine as directed to possibly help with her breathing. The patient and the patient's shaking seem to resemble rigors. The family was concerned that the patient may be having an allergic reaction because other family members have had similar reactions. I administered 25 mg of IV diphenhydramine with no positive effect. I ordered labs due to concern for sepsis. Blood pressure had dropped from a previous of 138 systolic to 108 systolic. This was also likely secondary to morphine. The drop in blood pressure, suspected source of infection, and suspected rigors to suspicion of possible sepsis and labs were ordered. Patient's potassium was once again 6.3. Note that the patient had some shaking prior to coming to the emergency department. I administered 1 g calcium gluconate, 500 mL normal saline bolus, and 40 mg IV Lasix. Also administered 0.2 mg of Narcan. She still has shaking but the shaking seems to have improved and she is now vocalizing more. It is not clear if the Narcan helped because it was given prior to the fluids but it seems like the fluids probably helped. Nursing reports 1 L output from Mithcell catheter Patient continues to be afebrile. Her creatinine and GFR improved. As mentioned above, she once again has hyperkalemia. Patient is being monitored by telemetry. We will check BMP/electrolytes again in the morning. Patient's potassium control will likely improve as renal function improves otherwise we will need to look for a source causing electrolyte abnormality.
[2021-03-28] MEDS: Aspirin 81 MG Tab.EC PO SCH (09:00)
[2021-03-28] MEDS: Albuterol/Ipratropium 3.0-0.5 MG/3 ML Neb Soln NEB SCH ×4 (09:00→21:30)
[2021-03-28] MEDS ORDERED: Multivitamins with Iron/Calcium/Folic Acid/Minerals Tab PO SCH (09:00)
[2021-03-28] MEDS: Cyanocobalamin (Vitamin B12) 1,000 MCG Tab PO SCH (09:00)
[2021-03-28] MEDS: Carvedilol 12.5 MG Tab PO SCH ×2 (09:00→17:43)
[2021-03-28] MEDS: Acetaminophen 500 MG Tab PO SCH (09:00)
[2021-03-28] MEDS: Docusate Sodium 100 MG Cap PO SCH ×2 (09:00→20:34)
--- NOTE | 2021-03-28 10:20 | PCM.PN ---
- General Info Date of Service: 03/28/21 Subjective Update: Patient reportedly had a tough night. She was very restless, and continued to have jerks. Functional Status: Denies: Pain Controlled - Review of Systems Pulmonary: Reports: No Symptoms Cardiovascular: Reports: Edema. Denies: No Symptoms Gastrointestinal: Reports: No Symptoms - Patient Data Vitals - Most Recent: Last Vital Signs Temp 96.4 F L 03/27/21 20:00 Pulse 80 03/28/21 04:00 Resp 24 H 03/28/21 00:00 BP 108/51 L 03/27/21 20:00 Pulse Ox 94 L 03/28/21 04:00 Weight - Most Recent: 125.055 kg I&O - Last 24 Hours: Intake & Output 03/27/21 03/28/21 03/28/21 22:59 06:59 14:59 Intake Total 700 500 Output Total 1550 825 Balance -850 -325 Lab Results Last 24 Hours: Laboratory Results - last 24 hr 03/27/21 03/27/21 03/27/21 Range/Units 11:30 11:44 11:44 WBC 6.8 (3.0-10.3) x10-3/uL RBC 3.46 L (3.60-5.20) x10(6)uL Hgb 10.7 L (11.4-15.5) g/dL Hct 34.6 (34.2-48.2) % MCV 99.8 (76.7-100.5) fL MCH 30.9 (23.9-33.9) pg MCHC 31.0 L (31.9-34.8) g/dL RDW 14.3 (12.3-16.5) % Plt Count 168 (151-488) x10(3)uL MPV 7.6 (7.1-12.4) fL Neut % (Auto) 75.1 (30.8-76.2) % Lymph % (Auto) 13.4 L (18.4-52.1) % [place] % (Auto) 9.6 (4.4-15.7) % Eos % (Auto) 1.3 (0.6-8.1) % Baso % (Auto) 0.6 (0.2-1.5) % Neut # (Auto) 5.1 (1.5-6.3) x10-3/uL Lymph # (Auto) 0.9 L (1.0-4.4) x10-3/uL [place] # (Auto) 0.7 (0.3-1.0) x10-3/uL Eos # (Auto) 0.1 (0.0-0.8) x10-3/uL Baso # (Auto) 0.0 (0.0-0.1) x10-3/uL Add Manual Diff Neutrophils % (Manual) (46-82) % Band Neutrophils % (0-6) % Lymphocytes % (Manual) (13-37) % Monocytes % (Manual) (4-12) % Sodium 142 (135-145) mmol/L Potassium 6.3 H* (3.5-5.3) mmol/L Chloride 101 (100-110) mmol/L Carbon Dioxide 43 H* (21-32) mmol/L BUN 51 H (7-18) mg/dL Creatinine 1.8 H (0.55-1.02) mg/dL Est Cr Clr Drug Dosing TNP Estimated GFR (MDRD) 26 L (>60) BUN/Creatinine Ratio 28.3 H (9-20) Glucose 160 H (80-116) mg/dL Calcium 9.6 (8.6-10.2) mg/dL Total Bilirubin 0.3 (0.1-1.3) mg/dL AST 20 (5-25) IU/L ALT 24 (12-36) U/L Alkaline Phosphatase 66 (56-112) IU/L Troponin I (4.0-60.3) pg/mL NT-Pro-B Natriuret Pep (<=450) pg/mL Total Protein 7.1 (6.0-8.0) g/dL Albumin 2.9 (2.9-4.5) g/dL Globulin 4.2 g/dL Albumin/Globulin Ratio 0.7 Urine Color (YELLOW) Urine Appearance (CLEAR) Urine pH (5.0-6.5) Ur Specific [place] (1.010-1.025) Urine Protein (NEGATIVE) mg/dL Urine Glucose (UA) (NORMAL) mg/dL Urine Ketones (NEGATIVE) mg/dL Urine Occult Blood (NEGATIVE) Urine Nitrite (NEGATIVE) Urine Bilirubin (NEGATIVE) Urine Urobilinogen (NEGATIVE) mg/dL Ur Leukocyte Esterase (NEGATIVE) U Hyaline Cast (Auto) (NS) Urine RBC (0-5) Urine WBC (0-5) Ur Squamous Epith Cells (NS,R,O) Urine Bacteria (NS) Influenza Type A RNA Negative (NEGATIVE) Influenza Type B RNA Negative (NEGATIVE) SARS-CoV-2 RNA (SHERON) Negative (NEGATIVE) 03/27/21 03/27/21 03/27/21 Range/Units 11:44 12:00 16:17 WBC (3.0-10.3) x10-3/uL RBC (3.60-5.20) x10(6)uL Hgb (11.4-15.5) g/dL Hct (34.2-48.2) % MCV (76.7-100.5) fL MCH (23.9-33.9) pg MCHC (31.9-34.8) g/dL RDW (12.3-16.5) % Plt Count (151-488) x10(3)uL MPV (7.1-12.4) fL Neut % (Auto) (30.8-76.2) % Lymph % (Auto) (18.4-52.1) % [place] % (Auto) (4.4-15.7) % Eos % (Auto) (0.6-8.1) % Baso % (Auto) (0.2-1.5) % Neut # (Auto) (1.5-6.3) x10-3/uL Lymph # (Auto) (1.0-4.4) x10-3/uL [place] # (Auto) (0.3-1.0) x10-3/uL Eos # (Auto) (0.0-0.8) x10-3/uL Baso # (Auto) (0.0-0.1) x10-3/uL Add Manual Diff Neutrophils % (Manual) (46-82) % Band Neutrophils % (0-6) % Lymphocytes % (Manual) (13-37) % Monocytes % (Manual) (4-12) % Sodium (135-145) mmol/L Potassium 5.9 H (3.5-5.3) mmol/L Chloride (100-110) mmol/L Carbon Dioxide (21-32) mmol/L BUN (7-18) mg/dL Creatinine (0.55-1.02) mg/dL Est Cr Clr Drug Dosing Estimated GFR (MDRD) (>60) BUN/Creatinine Ratio (9-20) Glucose (80-116) mg/dL Calcium (8.6-10.2) mg/dL Total Bilirubin (0.1-1.3) mg/dL AST (5-25) IU/L ALT (12-36) U/L Alkaline Phosphatase (56-112) IU/L Troponin I 14.6 (4.0-60.3) pg/mL NT-Pro-B Natriuret Pep 313 (<=450) pg/mL Total Protein (6.0-8.0) g/dL Albumin (2.9-4.5) g/dL Globulin g/dL Albumin/Globulin Ratio Urine Color Yellow (YELLOW) Urine Appearance Clear (CLEAR) Urine pH 5.0 (5.0-6.5) Ur Specific [place] 1.015 (1.010-1.025) Urine Protein Negative (NEGATIVE) mg/dL Urine Glucose (UA) Normal (NORMAL) mg/dL Urine Ketones Negative (NEGATIVE) mg/dL Urine Occult Blood Trace (NEGATIVE) Urine Nitrite Negative (NEGATIVE) Urine Bilirubin Negative (NEGATIVE) Urine Urobilinogen Normal (NEGATIVE) mg/dL Ur Leukocyte Esterase Negative (NEGATIVE) U Hyaline Cast (Auto) Moderate H (NS) Urine RBC 30-40 H (0-5) Urine WBC 0-5 (0-5) Ur Squamous Epith Cells Occasional (NS,R,O) Urine Bacteria Few H (NS) Influenza Type A RNA (NEGATIVE) Influenza Type B RNA (NEGATIVE) SARS-CoV-2 RNA ([facility]ER[facility]) (NEGATIVE) 03/27/21 03/27/21 03/27/21 Range/Units 16:17 22:22 22:22 WBC 6.7 (3.0-10.3) x10-3/uL RBC 3.33 L (3.60-5.20) x10(6)uL Hgb 10.3 L (11.4-15.5) g/dL Hct 32.7 L (34.2-48.2) % MCV 98.2 (76.7-100.5) fL MCH 30.9 (23.9-33.9) pg MCHC 31.4 L (31.9-34.8) g/dL RDW 14.0 (12.3-16.5) % Plt Count 119 L (151-488) x10(3)uL MPV 8.0 (7.1-12.4) fL Neut % (Auto) (30.8-76.2) % Lymph % (Auto) (18.4-52.1) % [place] % (Auto) (4.4-15.7) % Eos % (Auto) (0.6-8.1) % Baso % (Auto) (0.2-1.5) % Neut # (Auto) (1.5-6.3) x10-3/uL Lymph # (Auto) (1.0-4.4) x10-3/uL [place] # (Auto) (0.3-1.0) x10-3/uL Eos # (Auto) (0.0-0.8) x10-3/uL Baso # (Auto) (0.0-0.1) x10-3/uL Add Manual Diff Yes Neutrophils % (Manual) 81 (46-82) % Band Neutrophils % 2 (0-6) % Lymphocytes % (Manual) 12 L (13-37) % Monocytes % (Manual) 5 (4-12) % Sodium 143 (135-145) mmol/L Potassium 6.3 H* (3.5-5.3) mmol/L Chloride 100 (100-110) mmol/L Carbon Dioxide 49 H* (21-32) mmol/L BUN 51 H (7-18) mg/dL Creatinine 1.6 H (0.55-1.02) mg/dL Est Cr Clr Drug Dosing 20.58 Estimated GFR (MDRD) 30 L (>60) BUN/Creatinine Ratio 31.9 H (9-20) Glucose 156 H (80-116) mg/dL Calcium 9.5 (8.6-10.2) mg/dL Total Bilirubin (0.1-1.3) mg/dL AST (5-25) IU/L ALT (12-36) U/L Alkaline Phosphatase (56-112) IU/L Troponin I 16.1 (4.0-60.3) pg/mL NT-Pro-B Natriuret Pep (<=450) pg/mL Total Protein (6.0-8.0) g/dL Albumin (2.9-4.5) g/dL Globulin g/dL Albumin/Globulin Ratio Urine Color (YELLOW) Urine Appearance (CLEAR) Urine pH (5.0-6.5) Ur Specific [place] (1.010-1.025) Urine Protein (NEGATIVE) mg/dL Urine Glucose (UA) (NORMAL) mg/dL Urine Ketones (NEGATIVE) mg/dL Urine Occult Blood (NEGATIVE) Urine Nitrite (NEGATIVE) Urine Bilirubin (NEGATIVE) Urine Urobilinogen (NEGATIVE) mg/dL Ur Leukocyte Esterase (NEGATIVE) U Hyaline Cast (Auto) (NS) Urine RBC (0-5) Urine WBC (0-5) Ur Squamous Epith Cells (NS,R,O) Urine Bacteria (NS) Influenza Type A RNA (NEGATIVE) Influenza Type B RNA (NEGATIVE) SARS-CoV-2 RNA ([facility]ER[facility]) (NEGATIVE) 03/28/21 03/28/21 03/28/21 Range/Units 07:15 07:15 07:15 WBC 6.0 (3.0-10.3) x10-3/uL RBC 3.08 L (3.60-5.20) x10(6)uL Hgb 9.5 L (11.4-15.5) g/dL Hct 30.2 L (34.2-48.2) % MCV 98.1 (76.7-100.5) fL MCH 30.9 (23.9-33.9) pg MCHC 31.5 L (31.9-34.8) g/dL RDW 14.1 (12.3-16.5) % Plt Count 181 (151-488) x10(3)uL MPV 7.6 (7.1-12.4) fL Neut % (Auto) 86.2 H (30.8-76.2) % Lymph % (Auto) 12.1 L (18.4-52.1) % [place] % (Auto) 1.5 L (4.4-15.7) % Eos % (Auto) 0.0 L (0.6-8.1) % Baso % (Auto) 0.2 (0.2-1.5) % Neut # (Auto) 5.2 (1.5-6.3) x10-3/uL Lymph # (Auto) 0.7 L (1.0-4.4) x10-3/uL [place] # (Auto) 0.1 L (0.3-1.0) x10-3/uL Eos # (Auto) 0.0 (0.0-0.8) x10-3/uL Baso # (Auto) 0.0 (0.0-0.1) x10-3/uL Add Manual Diff Neutrophils % (Manual) (46-82) % Band Neutrophils % (0-6) % Lymphocytes % (Manual) (13-37) % Monocytes % (Manual) (4-12) % Sodium 144 (135-145) mmol/L Potassium 5.7 H (3.5-5.3) mmol/L Chloride 101 (100-110) mmol/L Carbon Dioxide 50 H* (21-32) mmol/L BUN 52 H (7-18) mg/dL Creatinine 1.6 H (0.55-1.02) mg/dL Est Cr Clr Drug Dosing 20.58 Estimated GFR (MDRD) 30 L (>60) BUN/Creatinine Ratio 32.5 H (9-20) Glucose 130 H (80-116) mg/dL Calcium 9.4 (8.6-10.2) mg/dL Total Bilirubin (0.1-1.3) mg/dL AST (5-25) IU/L ALT (12-36) U/L Alkaline Phosphatase (56-112) IU/L Troponin I (4.0-60.3) pg/mL NT-Pro-B Natriuret Pep 748 H (<=450) pg/mL Total Protein (6.0-8.0) g/dL Albumin (2.9-4.5) g/dL Globulin g/dL Albumin/Globulin Ratio Urine Color (YELLOW) Urine Appearance (CLEAR) Urine pH (5.0-6.5) Ur Specific [place] (1.010-1.025) Urine Protein (NEGATIVE) mg/dL Urine Glucose (UA) (NORMAL) mg/dL Urine Ketones (NEGATIVE) mg/dL Urine Occult Blood (NEGATIVE) Urine Nitrite (NEGATIVE) Urine Bilirubin (NEGATIVE) Urine Urobilinogen (NEGATIVE) mg/dL Ur Leukocyte Esterase (NEGATIVE) U Hyaline Cast (Auto) (NS) Urine RBC (0-5) Urine WBC (0-5) Ur Squamous Epith Cells (NS,R,O) Urine Bacteria (NS) Influenza Type A RNA (NEGATIVE) Influenza Type B RNA (NEGATIVE) SARS-CoV-2 RNA ([facility]) (NEGATIVE) Med Orders - Current: Current Medications Acetaminophen (Acetaminophen 500 Mg Tab) 500 mg PO DAILY [facility] Albuterol/Ipratropium (Albuterol/Ipratropium 3.0-0.5 Mg/3 Ml Neb Soln) 3 ml NEB QID [facility] Last Admin: 03/27/21 21:00 Dose: 3 ml Documented by: Artificial Tears (Carboxymethylcellulose Sodium 0.5% Ophth Soln 15 Ml Bottle) 0 ml EYEBOTH BID PRN PRN Reason: Dry Eyes Aspirin (Aspirin 81 Mg Tab.Ec) 81 mg PO DAILY [facility] Carvedilol (Carvedilol 12.5 Mg Tab) 12.5 mg PO BIDMEALS [facility] Ceftriaxone Sodium (Ceftriaxone 1 Gm Vial) 1 gm IVPUSH Q24H [facility] Cholecalciferol (Cholecalciferol (Vitamin D3) 25 Mcg Tab) 50 mcg PO DAILY@1200 [facility] Cyanocobalamin (Cyanocobalamin (Vitamin B12) 1,000 Mcg Tab) 1,000 mcg PO DAILY [facility] Docusate Sodium (Docusate Sodium 100 Mg Cap) 100 mg PO BID [facility] Last Admin: 03/27/21 22:16 Dose: Not Given Documented by: Fluconazole (Fluconazole 100 Mg Tab) 100 mg PO MoWeFr@0900 [facility] Fluticasone Propionate (Fluticasone Propionate Nasal [place] 16 Gm Bottle) 0 gm NASBOTH DAILY PRN PRN Reason: Allergies Azithromycin 500 mg/ Sodium (Chloride) 250 mls @ 250 mls/hr IV Q24H [facility] Lorazepam (Lorazepam 2 Mg/Ml Sdv) 0.5 mg IVPUSH Q6H PRN PRN Reason: Agitation Lutein (Lutein 10 Mg Tab) 10 mg PO BEDTIME [facility] Last Admin: 03/27/21 22:16 Dose: Not Given Documented by: Magnesium Chloride (Magnesium Chloride 64 Mg Tab.Er) 64 mg PO DAILY@1200 [facility] Methylprednisolone Sodium Succinate (Methylprednisolone Sodium Succinate 125 Mg/ 2 Ml Sdv) 125 mg IVPUSH Q6H [facility] Last Admin: 03/28/21 06:37 Dose: 125 mg Documented by: Morphine Sulfate (Morphine 2 Mg/Ml Syringe) 2 mg IVPUSH Q2H PRN PRN Reason: Dyspnea Last Admin: 03/27/21 18:55 Dose: 2 mg Documented by: Multivitamins/Minerals (Multivitamins With Iron/Calcium/Folic Acid/Minerals Tab) 1 tab PO DAILY [facility] Sodium Chloride (Sodium Chloride 0.65% Nasal [place] 45 Ml Bottle) 0 ml NASBOTH ASDIRECTED PRN PRN Reason: Nasal Dryness Sodium Chloride (Sodium Chloride 0.9% 10 Ml Syringe) 10 ml FLUSH ASDIRECTED PRN PRN Reason: Keep Vein Open Discontinued Medications Albuterol/Ipratropium (Albuterol/Ipratropium 3.0-0.5 Mg/3 Ml Neb Soln) 3 ml NEB QIDRT [facility] Calcium Gluconate (Calcium Gluconate 10% 1 Gm/10 Ml Sdv) 1 gm IVPUSH ONETIME ONE Stop: 03/27/21 12:46 Last Admin: 03/27/21 13:00 Dose: 1 gm Documented by: Calcium Gluconate (Calcium Gluconate 10% 1 Gm/10 Ml Sdv) 1 gm IVPUSH ONETIME ONE Stop: 03/27/21 23:36 Last Admin: 03/28/21 00:20 Dose: 1 gm Documented by: Diphenhydramine HCl (Diphenhydramine 50 Mg/Ml Sdv) 25 mg IVPUSH ONETIME ONE Stop: 03/27/21 21:50 Last Admin: 03/27/21 22:00 Dose: 25 mg Documented by: Furosemide (Furosemide 40 Mg/4 Ml Vial) 40 mg IVPUSH NOW ONE Stop: 03/27/21 12:46 Last Admin: 03/27/21 12:59 Dose: 40 mg Documented by: Furosemide (Furosemide 40 Mg/4 Ml Vial) 40 mg IVPUSH NOW ONE Stop: 03/27/21 23:38 Last Admin: 03/28/21 00:15 Dose: 40 mg Documented by: Sodium Chloride (Normal Saline) 1,000 mls @ 125 mls/hr IV ASDIRECTED ROBERT Last Admin: 03/27/21 13:30 Dose: 125 mls/hr Documented by: Ceftriaxone Sodium 1 gm/ (Sodium Chloride) 50 mls @ 200 mls/hr IV ONETIME ONE Stop: 03/27/21 13:00 Last Admin: 03/27/21 13:16 Dose: 200 mls/hr Documented by: Azithromycin 500 mg/ Sodium (Chloride) 250 mls @ 250 mls/hr IV ONETIME ONE Stop: 03/27/21 13:46 Last Admin: 03/27/21 12:58 Dose: 250 mls/hr Documented by: Sodium Chloride (Normal Saline) 500 mls @ 999 mls/hr IV .BOLUS ONE Stop: 03/27/21 23:50 Last Admin: 03/27/21 23:35 Dose: 999 mls/hr Documented by: Naloxone HCl (Naloxone 0.4 Mg/Ml Sdv) 0.2 mg IVPUSH ONETIME PRN PRN Reason: Shivering Last Admin: 03/27/21 23:40 Dose: 0.2 mg Documented by: - Exam Quality Assessment: Supplemental Oxygen Urinary Catheter Total Time: 0Days 15Hours General: Alert, Mild Distress Neck: Supple Lungs: Rhonchi Cardiovascular: Regular Rate GI/Abdominal Exam: Soft - Patient Data Lab Results Last 24 hrs: Laboratory Results - last 24 hr 03/27/21 03/27/21 03/27/21 Range/Units 11:30 11:44 11:44 WBC 6.8 (3.0-10.3) x10-3/uL RBC 3.46 L (3.60-5.20) x10(6)uL Hgb 10.7 L (11.4-15.5) g/dL Hct 34.6 (34.2-48.2) % MCV 99.8 (76.7-100.5) fL MCH 30.9 (23.9-33.9) pg MCHC 31.0 L (31.9-34.8) g/dL RDW 14.3 (12.3-16.5) % Plt Count 168 (151-488) x10(3)uL MPV 7.6 (7.1-12.4) fL Neut % (Auto) 75.1 (30.8-76.2) % Lymph % (Auto) 13.4 L (18.4-52.1) % [place] % (Auto) 9.6 (4.4-15.7) % Eos % (Auto) 1.3 (0.6-8.1) % Baso % (Auto) 0.6 (0.2-1.5) % Neut # (Auto) 5.1 (1.5-6.3) x10-3/uL Lymph # (Auto) 0.9 L (1.0-4.4) x10-3/uL [place] # (Auto) 0.7 (0.3-1.0) x10-3/uL Eos # (Auto) 0.1 (0.0-0.8) x10-3/uL Baso # (Auto) 0.0 (0.0-0.1) x10-3/uL Add Manual Diff Neutrophils % (Manual) (46-82) % Band Neutrophils % (0-6) % Lymphocytes % (Manual) (13-37) % Monocytes % (Manual) (4-12) % Sodium 142 (135-145) mmol/L Potassium 6.3 H* (3.5-5.3) mmol/L Chloride 101 (100-110) mmol/L Carbon Dioxide 43 H* (21-32) mmol/L BUN 51 H (7-18) mg/dL Creatinine 1.8 H (0.55-1.02) mg/dL Est Cr Clr Drug Dosing TNP Estimated GFR (MDRD) 26 L (>60) BUN/Creatinine Ratio 28.3 H (9-20) Glucose 160 H (80-116) mg/dL Calcium 9.6 (8.6-10.2) mg/dL Total Bilirubin 0.3 (0.1-1.3) mg/dL AST 20 (5-25) IU/L ALT 24 (12-36) U/L Alkaline Phosphatase 66 (56-112) IU/L Troponin I (4.0-60.3) pg/mL NT-Pro-B Natriuret Pep (<=450) pg/mL Total Protein 7.1 (6.0-8.0) g/dL Albumin 2.9 (2.9-4.5) g/dL Globulin 4.2 g/dL Albumin/Globulin Ratio 0.7 Urine Color (YELLOW) Urine Appearance (CLEAR) Urine pH (5.0-6.5) Ur Specific [place] (1.010-1.025) Urine Protein (NEGATIVE) mg/dL Urine Glucose (UA) (NORMAL) mg/dL Urine Ketones (NEGATIVE) mg/dL Urine Occult Blood (NEGATIVE) Urine Nitrite (NEGATIVE) Urine Bilirubin (NEGATIVE) Urine Urobilinogen (NEGATIVE) mg/dL Ur Leukocyte Esterase (NEGATIVE) U Hyaline Cast (Auto) (NS) Urine RBC (0-5) Urine WBC (0-5) Ur Squamous Epith Cells (NS,R,O) Urine Bacteria (NS) Influenza Type A RNA Negative (NEGATIVE) Influenza Type B RNA Negative (NEGATIVE) SARS-CoV-2 RNA ([facility]ER[facility]) Negative (NEGATIVE) 03/27/21 03/27/21 03/27/21 Range/Units 11:44 12:00 16:17 WBC (3.0-10.3) x10-3/uL RBC (3.60-5.20) x10(6)uL Hgb (11.4-15.5) g/dL Hct (34.2-48.2) % MCV (76.7-100.5) fL MCH (23.9-33.9) pg MCHC (31.9-34.8) g/dL RDW (12.3-16.5) % Plt Count (151-488) x10(3)uL MPV (7.1-12.4) fL Neut % (Auto) (30.8-76.2) % Lymph % (Auto) (18.4-52.1) % [place] % (Auto) (4.4-15.7) % Eos % (Auto) (0.6-8.1) % Baso % (Auto) (0.2-1.5) % Neut # (Auto) (1.5-6.3) x10-3/uL Lymph # (Auto) (1.0-4.4) x10-3/uL [place] # (Auto) (0.3-1.0) x10-3/uL Eos # (Auto) (0.0-0.8) x10-3/uL Baso # (Auto) (0.0-0.1) x10-3/uL Add Manual Diff Neutrophils % (Manual) (46-82) % Band Neutrophils % (0-6) % Lymphocytes % (Manual) (13-37) % Monocytes % (Manual) (4-12) % Sodium (135-145) mmol/L Potassium 5.9 H (3.5-5.3) mmol/L Chloride (100-110) mmol/L Carbon Dioxide (21-32) mmol/L BUN (7-18) mg/dL Creatinine (0.55-1.02) mg/dL Est Cr Clr Drug Dosing Estimated GFR (MDRD) (>60) BUN/Creatinine Ratio (9-20) Glucose (80-116) mg/dL Calcium (8.6-10.2) mg/dL Total Bilirubin (0.1-1.3) mg/dL AST (5-25) IU/L ALT (12-36) U/L Alkaline Phosphatase (56-112) IU/L Troponin I 14.6 (4.0-60.3) pg/mL NT-Pro-B Natriuret Pep 313 (<=450) pg/mL Total Protein (6.0-8.0) g/dL Albumin (2.9-4.5) g/dL Globulin g/dL Albumin/Globulin Ratio Urine Color Yellow (YELLOW) Urine Appearance Clear (CLEAR) Urine pH 5.0 (5.0-6.5) Ur Specific [place] 1.015 (1.010-1.025) Urine Protein Negative (NEGATIVE) mg/dL Urine Glucose (UA) Normal (NORMAL) mg/dL Urine Ketones Negative (NEGATIVE) mg/dL Urine Occult Blood Trace (NEGATIVE) Urine Nitrite Negative (NEGATIVE) Urine Bilirubin Negative (NEGATIVE) Urine Urobilinogen Normal (NEGATIVE) mg/dL Ur Leukocyte Esterase Negative (NEGATIVE) U Hyaline Cast (Auto) Moderate H (NS) Urine RBC 30-40 H (0-5) Urine WBC 0-5 (0-5) Ur Squamous Epith Cells Occasional (NS,R,O) Urine Bacteria Few H (NS) Influenza Type A RNA (NEGATIVE) Influenza Type B RNA (NEGATIVE) SARS-CoV-2 RNA ([facility]ERON) (NEGATIVE) 03/27/21 03/27/21 03/27/21 Range/Units 16:17 22:22 22:22 WBC 6.7 (3.0-10.3) x10-3/uL RBC 3.33 L (3.60-5.20) x10(6)uL Hgb 10.3 L (11.4-15.5) g/dL Hct 32.7 L (34.2-48.2) % MCV 98.2 (76.7-100.5) fL MCH 30.9 (23.9-33.9) pg MCHC 31.4 L (31.9-34.8) g/dL RDW 14.0 (12.3-16.5) % Plt Count 119 L (151-488) x10(3)uL MPV 8.0 (7.1-12.4) fL Neut % (Auto) (30.8-76.2) % Lymph % (Auto) (18.4-52.1) % [place] % (Auto) (4.4-15.7) % Eos % (Auto) (0.6-8.1) % Baso % (Auto) (0.2-1.5) % Neut # (Auto) (1.5-6.3) x10-3/uL Lymph # (Auto) (1.0-4.4) x10-3/uL [place] # (Auto) (0.3-1.0) x10-3/uL Eos # (Auto) (0.0-0.8) x10-3/uL Baso # (Auto) (0.0-0.1) x10-3/uL Add Manual Diff Yes Neutrophils % (Manual) 81 (46-82) % Band Neutrophils % 2 (0-6) % Lymphocytes % (Manual) 12 L (13-37) % Monocytes % (Manual) 5 (4-12) % Sodium 143 (135-145) mmol/L Potassium 6.3 H* (3.5-5.3) mmol/L Chloride 100 (100-110) mmol/L Carbon Dioxide 49 H* (21-32) mmol/L BUN 51 H (7-18) mg/dL Creatinine 1.6 H (0.55-1.02) mg/dL Est Cr Clr Drug Dosing 20.58 Estimated GFR (MDRD) 30 L (>60) BUN/Creatinine Ratio 31.9 H (9-20) Glucose 156 H (80-116) mg/dL Calcium 9.5 (8.6-10.2) mg/dL Total Bilirubin (0.1-1.3) mg/dL AST (5-25) IU/L ALT (12-36) U/L Alkaline Phosphatase (56-112) IU/L Troponin I 16.1 (4.0-60.3) pg/mL NT-Pro-B Natriuret Pep (<=450) pg/mL Total Protein (6.0-8.0) g/dL Albumin (2.9-4.5) g/dL Globulin g/dL Albumin/Globulin Ratio Urine Color (YELLOW) Urine Appearance (CLEAR) Urine pH (5.0-6.5) Ur Specific [place] (1.010-1.025) Urine Protein (NEGATIVE) mg/dL Urine Glucose (UA) (NORMAL) mg/dL Urine Ketones (NEGATIVE) mg/dL Urine Occult Blood (NEGATIVE) Urine Nitrite (NEGATIVE) Urine Bilirubin (NEGATIVE) Urine Urobilinogen (NEGATIVE) mg/dL Ur Leukocyte Esterase (NEGATIVE) U Hyaline Cast (Auto) (NS) Urine RBC (0-5) Urine WBC (0-5) Ur Squamous Epith Cells (NS,R,O) Urine Bacteria (NS) Influenza Type A RNA (NEGATIVE) Influenza Type B RNA (NEGATIVE) SARS-CoV-2 RNA (SHERON) (NEGATIVE) 03/28/21 03/28/21 03/28/21 Range/Units 07:15 07:15 07:15 WBC 6.0 (3.0-10.3) x10-3/uL RBC 3.08 L (3.60-5.20) x10(6)uL Hgb 9.5 L (11.4-15.5) g/dL Hct 30.2 L (34.2-48.2) % MCV 98.1 (76.7-100.5) fL MCH 30.9 (23.9-33.9) pg MCHC 31.5 L (31.9-34.8) g/dL RDW 14.1 (12.3-16.5) % Plt Count 181 (151-488) x10(3)uL MPV 7.6 (7.1-12.4) fL Neut % (Auto) 86.2 H (30.8-76.2) % Lymph % (Auto) 12.1 L (18.4-52.1) % [place] % (Auto) 1.5 L (4.4-15.7) % Eos % (Auto) 0.0 L (0.6-8.1) % Baso % (Auto) 0.2 (0.2-1.5) % Neut # (Auto) 5.2 (1.5-6.3) x10-3/uL Lymph # (Auto) 0.7 L (1.0-4.4) x10-3/uL [place] # (Auto) 0.1 L (0.3-1.0) x10-3/uL Eos # (Auto) 0.0 (0.0-0.8) x10-3/uL Baso # (Auto) 0.0 (0.0-0.1) x10-3/uL Add Manual Diff Neutrophils % (Manual) (46-82) % Band Neutrophils % (0-6) % Lymphocytes % (Manual) (13-37) % Monocytes % (Manual) (4-12) % Sodium 144 (135-145) mmol/L Potassium 5.7 H (3.5-5.3) mmol/L Chloride 101 (100-110) mmol/L Carbon Dioxide 50 H* (21-32) mmol/L BUN 52 H (7-18) mg/dL Creatinine 1.6 H (0.55-1.02) mg/dL Est Cr Clr Drug Dosing 20.58 Estimated GFR (MDRD) 30 L (>60) BUN/Creatinine Ratio 32.5 H (9-20) Glucose 130 H (80-116) mg/dL Calcium 9.4 (8.6-10.2) mg/dL Total Bilirubin (0.1-1.3) mg/dL AST (5-25) IU/L ALT (12-36) U/L Alkaline Phosphatase (56-112) IU/L Troponin I (4.0-60.3) pg/mL NT-Pro-B Natriuret Pep 748 H (<=450) pg/mL Total Protein (6.0-8.0) g/dL Albumin (2.9-4.5) g/dL Globulin g/dL Albumin/Globulin Ratio Urine Color (YELLOW) Urine Appearance (CLEAR) Urine pH (5.0-6.5) Ur Specific [place] (1.010-1.025) Urine Protein (NEGATIVE) mg/dL Urine Glucose (UA) (NORMAL) mg/dL Urine Ketones (NEGATIVE) mg/dL Urine Occult Blood (NEGATIVE) Urine Nitrite (NEGATIVE) Urine Bilirubin (NEGATIVE) Urine Urobilinogen (NEGATIVE) mg/dL Ur Leukocyte Esterase (NEGATIVE) U Hyaline Cast (Auto) (NS) Urine RBC (0-5) Urine WBC (0-5) Ur Squamous Epith Cells (NS,R,O) Urine Bacteria (NS) Influenza Type A RNA (NEGATIVE) Influenza Type B RNA (NEGATIVE) SARS-CoV-2 RNA ([facility]ER[facility]) (NEGATIVE) Result Diagrams: 03/29/21 06:55 03/29/21 06:55 Sepsis Event Note - Evaluation Sepsis Screening Result: No Definite Risk - Focused Exam Vital Signs: Vital Signs Pulse Resp Pulse Ox 03/28/21 04:00 80 94 L 03/28/21 00:00 76 24 H 93 L - Problem List & Annotations (1) COPD (chronic obstructive pulmonary disease) SNOMED Code(s): 29832968 Code(s): J44.9 - CHRONIC OBSTRUCTIVE PULMONARY DISEASE, UNSPECIFIED Status: Acute Current Visit: Yes Qualifiers: COPD type: chronic bronchitis (2) Obesity SNOMED Code(s): 847875143, 790588146 Code(s): E66.9 - OBESITY, UNSPECIFIED Status: Acute Current Visit: Yes Qualifiers: Obesity type: due to excess calories (3) CHF (congestive heart failure) SNOMED Code(s): 47970605 Code(s): I50.9 - HEART FAILURE, UNSPECIFIED Status: Acute Current Visit: Yes Qualifiers: Heart failure type: diastolic (4) CO2 narcosis SNOMED Code(s): 097449929, 841265332 Code(s): R06.89 - OTHER ABNORMALITIES OF BREATHING Status: Acute Current Visit: Yes (5) Acute kidney injury SNOMED Code(s): 98069784, 85340638 Code(s): N17.9 - ACUTE KIDNEY FAILURE, UNSPECIFIED Status: Acute Current Visit: Yes (6) Community acquired pneumonia SNOMED Code(s): 445803165 Code(s): J18.9 - PNEUMONIA, UNSPECIFIED ORGANISM Status: Acute Current Visit: Yes Qualifiers: Laterality: left (7) Hypercapnia SNOMED Code(s): 36461985 Code(s): R06.89 - OTHER ABNORMALITIES OF BREATHING Status: Acute Current Visit: Yes (8) Hyperkalemia SNOMED Code(s): 01702435 Code(s): E87.5 - HYPERKALEMIA Status: Acute Current Visit: Yes (9) Supplemental oxygen dependent SNOMED Code(s): 785103109652 Code(s): Z99.81 - DEPENDENCE ON SUPPLEMENTAL OXYGEN Status: Acute Current Visit: Yes (10) Encephalopathy SNOMED Code(s): 29566138 Code(s): G93.40 - ENCEPHALOPATHY, UNSPECIFIED Status: Acute Current Visit: Yes - Problem List Review Problem List Initiated/Reviewed/Updated: Yes - My Orders Last 24 Hours: My Active Orders 03/27/21 18:26 Carboxymethylcellulose Sodium [Refresh Tears 0.5%] 0 ml EYEBOTH BID PRN Fluticasone Propionate [Flonase] 0 gm NASBOTH DAILY PRN Sodium Chloride 0.65% [Melfa Nasal [place]] 0 ml NASBOTH ASDIRECTED PRN 03/27/21 18:34 Morphine 2 mg IVPUSH Q2H PRN 03/27/21 18:35 LORazepam [Ativan] 0.5 mg IVPUSH Q6H PRN 03/27/21 18:37 RT Aerosol Therapy [RC] ,,17,03/27/21 18:45 methylPREDNISolone Sod Succ [Solu-MEDROL] 125 mg IVPUSH Q6H 03/27/21 18:57 Sodium Chloride 0.9% [Saline Flush] 10 ml FLUSH ASDIRECTED PRN 03/27/21 21:00 Albuterol/Ipratropium [DuoNeb 3.0-0.5 MG/3 ML] 3 ml NEB QID Docusate Sodium [Colace] 100 mg PO BID Lutein 10 mg PO BEDTIME 03/28/21 08:00 carvediloL [Coreg] 12.5 mg PO BIDMEALS 03/28/21 09:00 Acetaminophen [Tylenol Extra Strength] 500 mg PO DAILY Aspirin [Halfprin] 81 mg PO DAILY Cyanocobalamin (Vitamin B12) [Vitamin B12] 1,000 mcg PO DAILY Multivitamins w-Iron/Ca/FA/Min [Thera M Plus] 1 tab PO DAILY 03/28/21 09:52 BLOOD GAS VENOUS [BG] Routine 03/28/21 10:00 Azithromycin [Zithromax] 500 mg Sodium Chloride 0.9% [Normal Saline AdvBag] 250 ml IV Q24H cefTRIAXone [Rocephin] 1 gm IVPUSH Q24H 03/28/21 10:16 BIPAP Adult [RT BiPAP/CPAP] [RC] ASDIRECTED 03/28/21 10:17 Code Status [Resuscitation Status] Routine 03/28/21 12:00 Cholecalciferol (Vitamin D3) [Vitamin D3] 50 mcg PO DAILY@1200 Magnesium Chloride [Mag-64] 64 mg PO DAILY@1200 03/29/21 05:11 BASIC METABOLIC PANEL,BMP [CHEM] AM CBC WITH AUTO DIFF [HEME] AM 03/30/21 09:00 Fluconazole [Diflucan] 100 mg PO MoWeFr@0900 - Plan Plan:: I had a discussion with the family, and he would like to be DNR. I specifically spoke to Fariha . I also called Kacey, spoke with the hospitalist at [facility]. He suggested we do a venous blood gas, and try BiPAP first before considering transfer if necessary. I updated family.
[2021-03-28 10:23] LABS: BASE EXCESS VENOUS,POC 16 mmol/L (-2 - 3+); PCO2 VENOUS,POC 68 mmHg (41-51); PH VENOUS,POC 7.41 pH Units (7.32-7.43)
[2021-03-28] MEDS ORDERED: Magnesium Chloride 64 MG Tab.ER PO SCH (12:00)
[2021-03-28] MEDS ORDERED: Cholecalciferol (Vitamin D3) 25 MCG Tab PO SCH (12:00)
[2021-03-28] MEDS: cefTRIAXone 1 GM Vial IVPUSH SCH (12:07)
[2021-03-28] MEDS: Azithromycin 500 MG in Sodium Chloride 0.9% 250 ML IV SCH (12:22)
[2021-03-28] MEDS: Sodium Chloride 0.9% 10 ML Syringe FLUSH PRN (17:54)
[2021-03-28] MEDS ORDERED: Acetaminophen 325 MG Tab ONE (22:24)
[2021-03-28] MEDS ORDERED: Acetaminophen 325 MG Tab PO PRN (22:25)
[2021-03-29] MEDS: methylPREDNISolone Sodium Succinate 125 MG/2 ML SDV IVPUSH SCH ×4 (01:16→18:17)
--- NOTE | 2021-03-29 08:59 | PCM.PN ---
- General Info Date of Service: 03/29/21 Subjective Update: At the recommendation the hospitalist, from [facility], we tried BiPAP yesterday. It made her very uncomfortable and unresponsive. So this was discontinued.She slept better yesterday - Review of Systems General: Reports: No Symptoms HEENT: Reports: No Symptoms Pulmonary: Reports: No Symptoms Cardiovascular: Reports: No Symptoms - Patient Data Vitals - Most Recent: Last Vital Signs Temp 98.9 F 03/29/21 04:00 Pulse 76 03/29/21 00:00 Resp 24 H 03/29/21 04:00 BP 135/70 03/28/21 21:20 Pulse Ox 90 L 03/29/21 04:00 Weight - Most Recent: 125.055 kg I&O - Last 24 Hours: Intake & Output 03/28/21 03/29/21 03/29/21 22:59 06:59 14:59 Intake Total 50 Output Total 600 450 Balance -600 -400 Lab Results Last 24 Hours: Laboratory Results - last 24 hr 03/28/21 03/29/21 03/29/21 Range/Units 10:10 06:55 06:55 WBC 9.5 (3.0-10.3) x10-3/uL RBC 3.22 L (3.60-5.20) x10(6)uL Hgb 10.0 L (11.4-15.5) g/dL Hct 31.1 L (34.2-48.2) % MCV 96.5 (76.7-100.5) fL MCH 31.1 (23.9-33.9) pg MCHC 32.3 (31.9-34.8) g/dL RDW 14.5 (12.3-16.5) % Plt Count 197 (151-488) x10(3)uL MPV 7.8 (7.1-12.4) fL Neut % (Auto) 84.9 H (30.8-76.2) % Lymph % (Auto) 10.8 L (18.4-52.1) % Cobb % (Auto) 4.0 L (4.4-15.7) % Eos % (Auto) 0.0 L (0.6-8.1) % Baso % (Auto) 0.3 (0.2-1.5) % Neut # (Auto) 8.1 H (1.5-6.3) x10-3/uL Lymph # (Auto) 1.0 (1.0-4.4) x10-3/uL Cobb # (Auto) 0.4 (0.3-1.0) x10-3/uL Eos # (Auto) 0.0 (0.0-0.8) x10-3/uL Baso # (Auto) 0.0 (0.0-0.1) x10-3/uL POC VBG pH 7.41 (7.32-7.43) pH Units POC VBG pCO2 68 H (41-51) mmHg POC VBG HCO3 43 H (22-29) mmol/L VBG Base Excess 16 H (-2 - 3+) mmol/L O2 Delivery Device Nasal cannula Oxygen Flow Rate 3 LPM Sodium 146 H (135-145) mmol/L Potassium 4.7 D (3.5-5.3) mmol/L Chloride 99 L (100-110) mmol/L Carbon Dioxide 48 H* (21-32) mmol/L BUN 52 H (7-18) mg/dL Creatinine 1.8 H (0.55-1.02) mg/dL Est Cr Clr Drug Dosing 18.30 mL/min Estimated GFR (MDRD) 26 L (>60) BUN/Creatinine Ratio 28.9 H (9-20) Glucose 190 H (80-116) mg/dL Calcium 9.3 (8.6-10.2) mg/dL Med Orders - Current: Current Medications Acetaminophen (Acetaminophen 500 Mg Tab) 500 mg PO DAILY [facility] Last Admin: 03/28/21 09:00 Dose: Not Given Documented by: Acetaminophen (Acetaminophen 325 Mg Tab) 650 mg PO Q4H PRN PRN Reason: Fever Last Admin: 03/28/21 22:30 Dose: 650 mg Documented by: Albuterol/Ipratropium (Albuterol/Ipratropium 3.0-0.5 Mg/3 Ml Neb Soln) 3 ml NEB QID [facility] Last Admin: 03/28/21 21:30 Dose: 3 ml Documented by: Artificial Tears (Carboxymethylcellulose Sodium 0.5% Ophth Soln 15 Ml Bottle) 0 ml EYEBOTH BID PRN PRN Reason: Dry Eyes Aspirin (Aspirin 81 Mg Tab.Ec) 81 mg PO DAILY [facility] Last Admin: 03/28/21 09:00 Dose: Not Given Documented by: Ceftriaxone Sodium (Ceftriaxone 1 Gm Vial) 1 gm IVPUSH Q24H [facility] Last Admin: 03/28/21 12:07 Dose: 1 gm Documented by: Cyanocobalamin (Cyanocobalamin (Vitamin B12) 1,000 Mcg Tab) 1,000 mcg PO DAILY [facility] Last Admin: 03/28/21 09:00 Dose: Not Given Documented by: Fluticasone Propionate (Fluticasone Propionate Nasal [place] 16 Gm Bottle) 0 gm NASBOTH DAILY PRN PRN Reason: Allergies Azithromycin 500 mg/ Sodium (Chloride) 250 mls @ 250 mls/hr IV Q24H [facility] Last Admin: 03/28/21 12:22 Dose: 250 mls/hr Documented by: Lorazepam (Lorazepam 2 Mg/Ml Sdv) 0.5 mg IVPUSH Q6H PRN PRN Reason: Agitation Methylprednisolone Sodium Succinate (Methylprednisolone Sodium Succinate 125 Mg/2 Ml Sdv) 125 mg IVPUSH Q6H [facility] Last Admin: 03/29/21 06:17 Dose: 125 mg Documented by: Morphine Sulfate (Morphine 2 Mg/Ml Syringe) 2 mg IVPUSH Q2H PRN PRN Reason: Dyspnea Last Admin: 03/27/21 18:55 Dose: 2 mg Documented by: Nystatin (Nystatin Topical Powder 15 Gm Bottle) 1 gm TOP BID [facility]ERT Sodium Chloride (Sodium Chloride 0.65% Nasal [place] 45 Ml Bottle) 0 ml NASBOTH ASDIRECTED PRN PRN Reason: Nasal Dryness Sodium Chloride (Sodium Chloride 0.9% 10 Ml Syringe) 10 ml FLUSH ASDIRECTED PRN PRN Reason: Keep Vein Open Last Admin: 03/28/21 17:54 Dose: 10 ml Documented by: Discontinued Medications Acetaminophen (Acetaminophen 325 Mg Tab) Confirm Administered Dose 650 mg .ROUTE .STK-MED ONE Stop: 03/28/21 22:25 Last Admin: 03/28/21 22:42 Dose: Not Given Documented by: Albuterol/Ipratropium (Albuterol/Ipratropium 3.0-0.5 Mg/3 Ml Neb Soln) 3 ml NEB QIDRT [facility] Calcium Gluconate (Calcium Gluconate 10% 1 Gm/10 Ml Sdv) 1 gm IVPUSH ONETIME ONE Stop: 12/31/21 12:46 Last Admin: 03/27/21 13:00 Dose: 1 gm Documented by: Calcium Gluconate (Calcium Gluconate 10% 1 Gm/10 Ml Sdv) 1 gm IVPUSH ONETIME ONE Stop: 03/27/21 23:36 Last Admin: 03/28/21 00:20 Dose: 1 gm Documented by: Carvedilol (Carvedilol 12.5 Mg Tab) 12.5 mg PO BIDMEALS [facility] Last Admin: 03/28/21 17:43 Dose: Not Given Documented by: Cholecalciferol (Cholecalciferol (Vitamin D3) 25 Mcg Tab) 50 mcg PO DAILY@1200 [facility] Last Admin: 03/28/21 12:00 Dose: Not Given Documented by: Diphenhydramine HCl (Diphenhydramine 50 Mg/Ml Sdv) 25 mg IVPUSH ONETIME ONE Stop: 03/27/21 21:50 Last Admin: 03/27/21 22:00 Dose: 25 mg Documented by: Docusate Sodium (Docusate Sodium 100 Mg Cap) 100 mg PO BID [facility] Last Admin: 03/28/21 20:34 Dose: Not Given Documented by: Fluconazole (Fluconazole 100 Mg Tab) 100 mg PO MoWeFr@0900 [facility] Furosemide (Furosemide 40 Mg/4 Ml Vial) 40 mg IVPUSH NOW ONE Stop: 03/27/21 12:46 Last Admin: 03/27/21 12:59 Dose: 40 mg Documented by: Furosemide (Furosemide 40 Mg/4 Ml Vial) 40 mg IVPUSH NOW ONE Stop: 03/27/21 23:38 Last Admin: 03/28/21 00:15 Dose: 40 mg Documented by: Sodium Chloride (Normal Saline) 1,000 mls @ 125 mls/hr IV ASDIRECTED [facility] Last Admin: 03/27/21 13:30 Dose: 125 mls/hr Documented by: Ceftriaxone Sodium 1 gm/ (Sodium Chloride) 50 mls @ 200 mls/hr IV ONETIME ONE Stop: 03/27/21 13:00 Last Admin: 03/27/21 13:16 Dose: 200 mls/hr Documented by: Azithromycin 500 mg/ Sodium (Chloride) 250 mls @ 250 mls/hr IV ONETIME ONE Stop: 03/27/21 13:46 Last Admin: 03/27/21 12:58 Dose: 250 mls/hr Documented by: Sodium Chloride (Normal Saline) 500 mls @ 999 mls/hr IV .BOLUS ONE Stop: 03/27/21 23:50 Last Admin: 03/27/21 23:35 Dose: 999 mls/hr Documented by: Lutein (Lutein 10 Mg Tab) 10 mg PO BEDTIME [facility] Last Admin: 03/28/21 20:34 Dose: Not Given Documented by: Magnesium Chloride (Magnesium Chloride 64 Mg Tab.Er) 64 mg PO DAILY@1200 [facility] Last Admin: 03/28/21 12:00 Dose: Not Given Documented by: Multivitamins/Minerals (Multivitamins With Iron/Calcium/Folic Acid/Minerals Tab) 1 tab PO DAILY [facility] Last Admin: 03/28/21 09:00 Dose: Not Given Documented by: Naloxone HCl (Naloxone 0.4 Mg/Ml Sdv) 0.2 mg IVPUSH ONETIME PRN PRN Reason: Shivering Last Admin: 03/27/21 23:40 Dose: 0.2 mg Documented by: - Exam Quality Assessment: Supplemental Oxygen Urinary Catheter Total Time: 1Days 14Hours General: Alert HEENT: Pupils Equal Lungs: Clear to Auscultation, Crackles, Rales Cardiovascular: Regular Rate GI/Abdominal Exam: Soft - Patient Data Lab Results Last 24 hrs: Laboratory Results - last 24 hr 03/28/21 03/29/21 03/29/21 Range/Units 10:10 06:55 06:55 WBC 9.5 (3.0-10.3) x10-3/uL RBC 3.22 L (3.60-5.20) x10(6)uL Hgb 10.0 L (11.4-15.5) g/dL Hct 31.1 L (34.2-48.2) % MCV 96.5 (76.7-100.5) fL MCH 31.1 (23.9-33.9) pg MCHC 32.3 (31.9-34.8) g/dL RDW 14.5 (12.3-16.5) % Plt Count 197 (151-488) x10(3)uL MPV 7.8 (7.1-12.4) fL Neut % (Auto) 84.9 H (30.8-76.2) % Lymph % (Auto) 10.8 L (18.4-52.1) % Cobb % (Auto) 4.0 L (4.4-15.7) % Eos % (Auto) 0.0 L (0.6-8.1) % Baso % (Auto) 0.3 (0.2-1.5) % Neut # (Auto) 8.1 H (1.5-6.3) x10-3/uL Lymph # (Auto) 1.0 (1.0-4.4) x10-3/uL Cobb # (Auto) 0.4 (0.3-1.0) x10-3/uL Eos # (Auto) 0.0 (0.0-0.8) x10-3/uL Baso # (Auto) 0.0 (0.0-0.1) x10-3/uL POC VBG pH 7.41 (7.32-7.43) pH Units POC VBG pCO2 68 H (41-51) mmHg POC VBG HCO3 43 H (22-29) mmol/L VBG Base Excess 16 H (-2 - 3+) mmol/L O2 Delivery Device Nasal cannula Oxygen Flow Rate 3 LPM Sodium 146 H (135-145) mmol/L Potassium 4.7 D (3.5-5.3) mmol/L Chloride 99 L (100-110) mmol/L Carbon Dioxide 48 H* (21-32) mmol/L BUN 52 H (7-18) mg/dL Creatinine 1.8 H (0.55-1.02) mg/dL Est Cr Clr Drug Dosing 18.30 mL/min Estimated GFR (MDRD) 26 L (>60) BUN/Creatinine Ratio 28.9 H (9-20) Glucose 190 H (80-116) mg/dL Calcium 9.3 (8.6-10.2) mg/dL Result Diagrams: 03/29/21 06:55 03/29/21 06:55 Sepsis Event Note - Evaluation Sepsis Screening Result: No Definite Risk - Focused Exam Vital Signs: Vital Signs Temp Temp Temp Pulse Resp BP Pulse Ox 03/29/21 04:00 98.9 F 24 H 90 L 03/29/21 00:00 98.4 F 76 26 H 90 L 03/28/21 22:30 99.6 F 03/28/21 21:20 99.6 F 90 24 H 135/70 92 L - Problem List & Annotations (1) COPD (chronic obstructive pulmonary disease) SNOMED Code(s): 79462778 Code(s): J44.9 - CHRONIC OBSTRUCTIVE PULMONARY DISEASE, UNSPECIFIED Status: Acute Current Visit: Yes Qualifiers: COPD type: chronic bronchitis (2) Obesity SNOMED Code(s): 230191871, 415775441 Code(s): E66.9 - OBESITY, UNSPECIFIED Status: Acute Current Visit: Yes Qualifiers: Obesity type: due to excess calories (3) CHF (congestive heart failure) SNOMED Code(s): 20021570 Code(s): I50.9 - HEART FAILURE, UNSPECIFIED Status: Acute Current Visit: Yes Qualifiers: Heart failure type: diastolic (4) CO2 narcosis SNOMED Code(s): 941100041, 561399184 Code(s): R06.89 - OTHER ABNORMALITIES OF BREATHING Status: Acute Current Visit: Yes (5) Acute kidney injury SNOMED Code(s): 76887249, 90705172 Code(s): N17.9 - ACUTE KIDNEY FAILURE, UNSPECIFIED Status: Acute Current Visit: Yes (6) Community acquired pneumonia SNOMED Code(s): 797667641 Code(s): J18.9 - PNEUMONIA, UNSPECIFIED ORGANISM Status: Acute Current Visit: Yes Qualifiers: Laterality: left (7) Hypercapnia SNOMED Code(s): 06423490 Code(s): R06.89 - OTHER ABNORMALITIES OF BREATHING Status: Acute Current Visit: Yes (8) Hyperkalemia SNOMED Code(s): 69627621 Code(s): E87.5 - HYPERKALEMIA Status: Acute Current Visit: Yes (9) Supplemental oxygen dependent SNOMED Code(s): 080295257233 Code(s): Z99.81 - DEPENDENCE ON SUPPLEMENTAL OXYGEN Status: Acute Current Visit: Yes (10) Encephalopathy SNOMED Code(s): 10449427 Code(s): G93.40 - ENCEPHALOPATHY, UNSPECIFIED Status: Acute Current Visit: Yes - Problem List Review Problem List Initiated/Reviewed/Updated: Yes - My Orders Last 24 Hours: My Active Orders 03/28/21 09:00 Acetaminophen [Tylenol Extra Strength] 500 mg PO DAILY Aspirin [Halfprin] 81 mg PO DAILY Cyanocobalamin (Vitamin B12) [Vitamin B12] 1,000 mcg PO DAILY 03/28/21 10:00 Azithromycin [Zithromax] 500 mg Sodium Chloride 0.9% [Normal Saline AdvBag] 250 ml IV Q24H cefTRIAXone [Rocephin] 1 gm IVPUSH Q24H 03/28/21 10:16 BIPAP Adult [RT BiPAP/CPAP] [RC] ASDIRECTED 03/28/21 10:17 Code Status [Resuscitation Status] Routine 03/28/21 11:15 Communication Order [RC] ASDIRECTED 03/28/21 13:45 Bladder Scan [RC] ASDIRECTED 03/28/21 22:25 Acetaminophen [TylenoL] 650 mg PO Q4H PRN 03/29/21 08:54 Cardiac Monitoring Discontinue [RC] Click to Edit 03/29/21 09:00 Nystatin [Nystop] 1 gm TOP BID 03/30/21 05:11 BASIC METABOLIC PANEL,BMP [CHEM] AM CBC WITH AUTO DIFF [HEME] AM - Plan Plan:: At the recommendation of the family, we did stop BiPAP. After long discussion, they want comfort measures with exception of antibiotics, so I have stopped telemetry. Repeat Labs in AM.
[2021-03-29] MEDS: Acetaminophen 500 MG Tab PO SCH (09:00)
[2021-03-29] MEDS: Aspirin 81 MG Tab.EC PO SCH (09:00)
[2021-03-29] MEDS: Cyanocobalamin (Vitamin B12) 1,000 MCG Tab PO SCH (09:00)
[2021-03-29] MEDS: Albuterol/Ipratropium 3.0-0.5 MG/3 ML Neb Soln NEB SCH ×4 (10:12→21:25)
[2021-03-29] MEDS: Azithromycin 500 MG in Sodium Chloride 0.9% 250 ML IV SCH (10:15)
[2021-03-29] MEDS: Sodium Chloride 0.9% 10 ML Syringe FLUSH PRN ×4 (10:15→18:17)
[2021-03-29] MEDS: Nystatin Topical Powder 15 GM Bottle TOP SCH ×2 (10:30→21:30)
[2021-03-29] MEDS: cefTRIAXone 1 GM Vial IVPUSH SCH ×2 (14:25→15:44)
[2021-03-30] MEDS: methylPREDNISolone Sodium Succinate 125 MG/2 ML SDV IVPUSH SCH ×6 (00:12→23:59)
--- NOTE | 2021-03-30 08:58 | PCM.PN ---
- General Info Date of Service: 03/30/21 Subjective Update: More clear minded today.She slept better yesterday - Review of Systems HEENT: Reports: No Symptoms Pulmonary: Reports: No Symptoms Cardiovascular: Reports: No Symptoms Gastrointestinal: Reports: No Symptoms - Patient Data Vitals - Most Recent: Last Vital Signs Temp 98.8 F 03/30/21 00:51 Pulse 80 03/30/21 00:51 Resp 20 03/30/21 00:51 BP 185/78 H 03/30/21 00:51 Pulse Ox 92 L 03/30/21 00:51 Weight - Most Recent: 125.055 kg I&O - Last 24 Hours: Intake & Output 03/29/21 03/30/21 03/30/21 22:59 06:59 14:59 Intake Total 100 Output Total 425 400 Balance -425 -300 Lab Results Last 24 Hours: Laboratory Results - last 24 hr 03/30/21 03/30/21 Range/Units 06:40 06:40 WBC 9.1 (3.0-10.3) x10-3/uL RBC 3.27 L (3.60-5.20) x10(6)uL Hgb 10.1 L (11.4-15.5) g/dL Hct 31.3 L (34.2-48.2) % MCV 95.7 (76.7-100.5) fL MCH 31.0 (23.9-33.9) pg MCHC 32.4 (31.9-34.8) g/dL RDW 14.5 (12.3-16.5) % Plt Count 192 (151-488) x10(3)uL MPV 7.6 (7.1-12.4) fL Add Manual Diff Yes Neutrophils % (Manual) 80 (46-82) % Band Neutrophils % 2 (0-6) % Lymphocytes % (Manual) 14 (13-37) % Monocytes % (Manual) 4 (4-12) % Sodium 147 H (135-145) mmol/L Potassium 4.3 (3.5-5.3) mmol/L Chloride 100 (100-110) mmol/L Carbon Dioxide 48 H* (21-32) mmol/L BUN 50 H (7-18) mg/dL Creatinine 1.8 H (0.55-1.02) mg/dL Est Cr Clr Drug Dosing 18.30 mL/min Estimated GFR (MDRD) 26 L (>60) BUN/Creatinine Ratio 27.8 H (9-20) Glucose 181 H (80-116) mg/dL Calcium 9.1 (8.6-10.2) mg/dL Med Orders - Current: Current Medications Acetaminophen (Acetaminophen 500 Mg Tab) 500 mg PO DAILY [facility] Last Admin: 03/29/21 09:00 Dose: Not Given Documented by: Acetaminophen (Acetaminophen 325 Mg Tab) 650 mg PO Q4H PRN PRN Reason: Fever Last Admin: 03/28/21 22:30 Dose: 650 mg Documented by: Albuterol/Ipratropium (Albuterol/Ipratropium 3.0-0.5 Mg/3 Ml Neb Soln) 3 ml NEB QID [facility] Last Admin: 03/29/21 21:25 Dose: 3 ml Documented by: Artificial Tears (Carboxymethylcellulose Sodium 0.5% Ophth Soln 15 Ml Bottle) 0 ml EYEBOTH BID PRN PRN Reason: Dry Eyes Aspirin (Aspirin 81 Mg Tab.Ec) 81 mg PO DAILY [facility] Last Admin: 03/29/21 09:00 Dose: Not Given Documented by: Ceftriaxone Sodium (Ceftriaxone 1 Gm Vial) 1 gm IVPUSH Q24H [facility] Last Admin: 03/29/21 15:44 Dose: Not Given Documented by: Cyanocobalamin (Cyanocobalamin (Vitamin B12) 1,000 Mcg Tab) 1,000 mcg PO DAILY [facility] Last Admin: 03/29/21 09:00 Dose: Not Given Documented by: Fluticasone Propionate (Fluticasone Propionate Nasal [place] 16 Gm Bottle) 0 gm NASBOTH DAILY PRN PRN Reason: Allergies Azithromycin 500 mg/ Sodium (Chloride) 250 mls @ 250 mls/hr IV Q24H [facility] Last Admin: 03/29/21 10:15 Dose: 250 mls/hr Documented by: Lorazepam (Lorazepam 2 Mg/Ml Sdv) 0.5 mg IVPUSH Q6H PRN PRN Reason: Agitation Methylprednisolone Sodium Succinate (Methylprednisolone Sodium Succinate 125 Mg/2 Ml Sdv) 125 mg IVPUSH Q6H [facility] Last Admin: 03/30/21 06:16 Dose: 125 mg Documented by: Morphine Sulfate (Morphine 2 Mg/Ml Syringe) 2 mg IVPUSH Q2H PRN PRN Reason: Dyspnea Last Admin: 03/27/21 18:55 Dose: 2 mg Documented by: Nystatin (Nystatin Topical Powder 15 Gm Bottle) 0 gm TOP BID [facility] Sodium Chloride (Sodium Chloride 0.65% Nasal [place] 45 Ml Bottle) 0 ml NASBOTH ASDIRECTED PRN PRN Reason: Nasal Dryness Sodium Chloride (Sodium Chloride 0.9% 10 Ml Syringe) 10 ml FLUSH ASDIRECTED PRN PRN Reason: Keep Vein Open Last Admin: 03/29/21 18:17 Dose: 10 ml Documented by: Discontinued Medications Acetaminophen (Acetaminophen 325 Mg Tab) Confirm Administered Dose 650 mg .ROUTE .STK-MED ONE Stop: 03/28/21 22:25 Last Admin: 03/28/21 22:42 Dose: Not Given Documented by: Albuterol/Ipratropium (Albuterol/Ipratropium 3.0-0.5 Mg/3 Ml Neb Soln) 3 ml NEB QIDRT [facility] Calcium Gluconate (Calcium Gluconate 10% 1 Gm/10 Ml Sdv) 1 gm IVPUSH ONETIME ONE Stop: 03/27/21 12:46 Last Admin: 03/27/21 13:00 Dose: 1 gm Documented by: Calcium Gluconate (Calcium Gluconate 10% 1 Gm/10 Ml Sdv) 1 gm IVPUSH ONETIME ONE Stop: 03/27/21 23:36 Last Admin: 03/28/21 00:20 Dose: 1 gm Documented by: Carvedilol (Carvedilol 12.5 Mg Tab) 12.5 mg PO BIDMEALS [facility] Last Admin: 03/28/21 17:43 Dose: Not Given Documented by: Ceftriaxone Sodium (Ceftriaxone 1 Gm Vial) 1 gm IVPUSH Q24H [facility] Last Admin: 03/29/21 14:25 Dose: 1 gm Documented by: Cholecalciferol (Cholecalciferol (Vitamin D3) 25 Mcg Tab) 50 mcg PO DAILY@1200 [facility] Last Admin: 03/28/21 12:00 Dose: Not Given Documented by: Diphenhydramine HCl (Diphenhydramine 50 Mg/Ml Sdv) 25 mg IVPUSH ONETIME ONE Stop: 03/27/21 21:50 Last Admin: 03/27/21 22:00 Dose: 25 mg Documented by: Docusate Sodium (Docusate Sodium 100 Mg Cap) 100 mg PO BID [facility] Last Admin: 03/28/21 20:34 Dose: Not Given Documented by: Fluconazole (Fluconazole 100 Mg Tab) 100 mg PO MoWeFr@0900 [facility] Furosemide (Furosemide 40 Mg/4 Ml Vial) 40 mg IVPUSH NOW ONE Stop: 03/27/21 12:46 Last Admin: 03/27/21 12:59 Dose: 40 mg Documented by: Furosemide (Furosemide 40 Mg/4 Ml Vial) 40 mg IVPUSH NOW ONE Stop: 03/27/21 23:38 Last Admin: 03/28/21 00:15 Dose: 40 mg Documented by: Sodium Chloride (Normal Saline) 1,000 mls @ 125 mls/hr IV ASDIRECTED [facility] Last Admin: 03/27/21 13:30 Dose: 125 mls/hr Documented by: Ceftriaxone Sodium 1 gm/ (Sodium Chloride) 50 mls @ 200 mls/hr IV ONETIME ONE Stop: 03/27/21 13:00 Last Admin: 03/27/21 13:16 Dose: 200 mls/hr Documented by: Azithromycin 500 mg/ Sodium (Chloride) 250 mls @ 250 mls/hr IV ONETIME ONE Stop: 03/27/21 13:46 Last Admin: 03/27/21 12:58 Dose: 250 mls/hr Documented by: Sodium Chloride (Normal Saline) 500 mls @ 999 mls/hr IV .BOLUS ONE Stop: 03/27/21 23:50 Last Admin: 03/27/21 23:35 Dose: 999 mls/hr Documented by: Lutein (Lutein 10 Mg Tab) 10 mg PO BEDTIME [facility] Last Admin: 03/28/21 20:34 Dose: Not Given Documented by: Magnesium Chloride (Magnesium Chloride 64 Mg Tab.Er) 64 mg PO DAILY@1200 [facility] Last Admin: 03/28/21 12:00 Dose: Not Given Documented by: Multivitamins/Minerals (Multivitamins With Iron/Calcium/Folic Acid/Minerals Tab) 1 tab PO DAILY [facility] Last Admin: 03/28/21 09:00 Dose: Not Given Documented by: Naloxone HCl (Naloxone 0.4 Mg/Ml Sdv) 0.2 mg IVPUSH ONETIME PRN PRN Reason: Shivering Last Admin: 03/27/21 23:40 Dose: 0.2 mg Documented by: Nystatin (Nystatin Topical Powder 15 Gm Bottle) 0 gm TOP BID [facility] Last Admin: 03/29/21 21:30 Dose: 1 applic Documented by: - Exam Quality Assessment: Supplemental Oxygen Urinary Catheter Total Time: 2Days 10Hours General: Alert, Oriented HEENT: Pupils Equal Lungs: Crackles Cardiovascular: Regular Rate GI/Abdominal Exam: Soft - Patient Data Lab Results Last 24 hrs: Laboratory Results - last 24 hr 03/30/21 03/30/21 Range/Units 06:40 06:40 WBC 9.1 (3.0-10.3) x10-3/uL RBC 3.27 L (3.60-5.20) x10(6)uL Hgb 10.1 L (11.4-15.5) g/dL Hct 31.3 L (34.2-48.2) % MCV 95.7 (76.7-100.5) fL MCH 31.0 (23.9-33.9) pg MCHC 32.4 (31.9-34.8) g/dL RDW 14.5 (12.3-16.5) % Plt Count 192 (151-488) x10(3)uL MPV 7.6 (7.1-12.4) fL Add Manual Diff Yes Neutrophils % (Manual) 80 (46-82) % Band Neutrophils % 2 (0-6) % Lymphocytes % (Manual) 14 (13-37) % Monocytes % (Manual) 4 (4-12) % Sodium 147 H (135-145) mmol/L Potassium 4.3 (3.5-5.3) mmol/L Chloride 100 (100-110) mmol/L Carbon Dioxide 48 H* (21-32) mmol/L BUN 50 H (7-18) mg/dL Creatinine 1.8 H (0.55-1.02) mg/dL Est Cr Clr Drug Dosing 18.30 mL/min Estimated GFR (MDRD) 26 L (>60) BUN/Creatinine Ratio 27.8 H (9-20) Glucose 181 H (80-116) mg/dL Calcium 9.1 (8.6-10.2) mg/dL Result Diagrams: 03/30/21 06:40 03/30/21 06:40 Sepsis Event Note - Evaluation Sepsis Screening Result: No Definite Risk - Focused Exam Vital Signs: Vital Signs Temp Pulse Resp BP Pulse Ox Pulse Ox 03/30/21 00:51 98.8 F 80 20 185/78 H 92 L 03/30/21 00:00 92 L - Problem List & Annotations (1) COPD (chronic obstructive pulmonary disease) SNOMED Code(s): 37633020 Code(s): J44.9 - CHRONIC OBSTRUCTIVE PULMONARY DISEASE, UNSPECIFIED Status: Acute Current Visit: Yes Qualifiers: COPD type: chronic bronchitis (2) Obesity SNOMED Code(s): 126744021, 442409688 Code(s): E66.9 - OBESITY, UNSPECIFIED Status: Acute Current Visit: Yes Qualifiers: Obesity type: due to excess calories (3) CHF (congestive heart failure) SNOMED Code(s): 83439103 Code(s): I50.9 - HEART FAILURE, UNSPECIFIED Status: Acute Current Visit: Yes Qualifiers: Heart failure type: diastolic (4) CO2 narcosis SNOMED Code(s): 929256311, 809398020 Code(s): R06.89 - OTHER ABNORMALITIES OF BREATHING Status: Acute Current Visit: Yes (5) Acute kidney injury SNOMED Code(s): 73120896, 65689026 Code(s): N17.9 - ACUTE KIDNEY FAILURE, UNSPECIFIED Status: Acute Current Visit: Yes (6) Community acquired pneumonia SNOMED Code(s): 323009988 Code(s): J18.9 - PNEUMONIA, UNSPECIFIED ORGANISM Status: Acute Current Visit: Yes Qualifiers: Laterality: left (7) Hypercapnia SNOMED Code(s): 30887466 Code(s): R06.89 - OTHER ABNORMALITIES OF BREATHING Status: Acute Current Visit: Yes (8) Hyperkalemia SNOMED Code(s): 77353191 Code(s): E87.5 - HYPERKALEMIA Status: Acute Current Visit: Yes (9) Supplemental oxygen dependent SNOMED Code(s): 342707368464 Code(s): Z99.81 - DEPENDENCE ON SUPPLEMENTAL OXYGEN Status: Acute Current Visit: Yes (10) Encephalopathy SNOMED Code(s): 87310095 Code(s): G93.40 - ENCEPHALOPATHY, UNSPECIFIED Status: Acute Current Visit: Yes - Problem List Review Problem List Initiated/Reviewed/Updated: Yes - My Orders Last 24 Hours: My Active Orders 03/29/21 14:00 cefTRIAXone [Rocephin] 1 gm IVPUSH Q24H 03/29/21 16:06 Vital Signs [RC] 08,16,01 03/30/21 07:57 Nystatin [Nystop] 0 gm TOP BID 03/30/21 08:25 Incentive Spirometry [RT Incentive Spirometry] [RC] Q4HWA 03/30/21 08:55 OT Evaluation and Treatment [CONS] Routine PT Evaluation and Treatment [CONS] Routine Chest 1V Frontal [CR] Routine 03/31/21 05:11 BASIC METABOLIC PANEL,BMP [CHEM] AM - Plan Plan:: PT/OT. Repeat CXR. IS. ? SB in a couple days?
[2021-03-30] MEDS ORDERED: Fluconazole 100 MG Tab PO SCH (09:00)
[2021-03-30] MEDS: Aspirin 81 MG Tab.EC PO SCH (09:03)
[2021-03-30] MEDS: Albuterol/Ipratropium 3.0-0.5 MG/3 ML Neb Soln NEB SCH ×4 (09:03→21:30)
[2021-03-30] MEDS: Nystatin Topical Powder 15 GM Bottle TOP SCH ×2 (09:03→21:29)
[2021-03-30] MEDS: Cyanocobalamin (Vitamin B12) 1,000 MCG Tab PO SCH (09:04)
[2021-03-30] MEDS: Acetaminophen 500 MG Tab PO SCH (09:04)
[2021-03-30] MEDS: Azithromycin 500 MG in Sodium Chloride 0.9% 250 ML IV SCH (09:05)
[2021-03-30] MEDS: Sodium Chloride 0.9% 10 ML Syringe FLUSH PRN (09:06)
[2021-03-30] MEDS: Carvedilol 12.5 MG Tab PO SCH (09:17)
[2021-03-30] MEDS: cefTRIAXone 1 GM Vial IVPUSH SCH (13:17)
[2021-03-30] MEDS ORDERED: Enoxaparin 30 MG/0.3 ML Syringe SUBCUT SCH (14:00)
[2021-03-30] MEDS: Enoxaparin 30 MG/0.3 ML Syringe SUBCUT SCH (17:38)
[2021-03-31] MEDS: Sodium Chloride 0.9% 10 ML Syringe FLUSH PRN ×2 (06:40)
[2021-03-31] MEDS: methylPREDNISolone Sodium Succinate 125 MG/2 ML SDV IVPUSH SCH (06:40)
--- NOTE | 2021-03-31 09:21 | PCM.PN ---
- General Info Date of Service: 03/31/21 Subjective Update: More clear minded today.She slept better yesterday.Up in he chair. CXR showed no pneumonia-resolved. - Review of Systems HEENT: Reports: No Symptoms Pulmonary: Reports: No Symptoms Cardiovascular: Reports: No Symptoms Genitourinary: Reports: No Symptoms - Patient Data Vitals - Most Recent: Last Vital Signs Temp 98 F 03/31/21 00:15 Pulse 71 03/31/21 00:15 Resp 18 03/31/21 00:15 BP 175/81 H 03/31/21 00:15 Pulse Ox 93 L 03/31/21 00:15 Weight - Most Recent: 125.055 kg I&O - Last 24 Hours: Intake & Output 03/30/21 03/31/21 03/31/21 22:59 06:59 14:59 Intake Total 50 Output Total 300 450 Balance -300 -400 Lab Results Last 24 Hours: Laboratory Results - last 24 hr 03/31/21 Range/Units 06:40 Sodium 143 (135-145) mmol/L Potassium 4.1 (3.5-5.3) mmol/L Chloride 99 L (100-110) mmol/L Carbon Dioxide 46 H* (21-32) mmol/L BUN 46 H (7-18) mg/dL Creatinine 1.7 H (0.55-1.02) mg/dL Est Cr Clr Drug Dosing 19.37 mL/min Estimated GFR (MDRD) 28 L (>60) BUN/Creatinine Ratio 27.1 H (9-20) Glucose 193 H (80-116) mg/dL Calcium 8.8 (8.6-10.2) mg/dL Med Orders - Current: Current Medications Acetaminophen (Acetaminophen 500 Mg Tab) 500 mg PO DAILY [facility] Last Admin: 03/30/21 09:04 Dose: 500 mg Documented by: Acetaminophen (Acetaminophen 325 Mg Tab) 650 mg PO Q4H PRN PRN Reason: Fever Last Admin: 03/28/21 22:30 Dose: 650 mg Documented by: Albuterol/Ipratropium (Albuterol/Ipratropium 3.0-0.5 Mg/3 Ml Neb Soln) 3 ml NEB QID [facility] Last Admin: 03/30/21 21:30 Dose: 3 ml Documented by: Artificial Tears (Carboxymethylcellulose Sodium 0.5% Ophth Soln 15 Ml Bottle) 0 ml EYEBOTH BID PRN PRN Reason: Dry Eyes Aspirin (Aspirin 81 Mg Tab.Ec) 81 mg PO DAILY [facility] Last Admin: 03/30/21 09:03 Dose: 81 mg Documented by: Cyanocobalamin (Cyanocobalamin (Vitamin B12) 1,000 Mcg Tab) 1,000 mcg PO DAILY [facility] Last Admin: 03/30/21 09:04 Dose: 1,000 mcg Documented by: Enoxaparin Sodium (Enoxaparin 30 Mg/0.3 Ml Syringe) 30 mg SUBCUT Q24H [facility] Last Admin: 03/30/21 17:38 Dose: 30 mg Documented by: Fluticasone Propionate (Fluticasone Propionate Nasal [place] 16 Gm Bottle) 0 gm NASBOTH DAILY PRN PRN Reason: Allergies Lorazepam (Lorazepam 2 Mg/Ml Sdv) 0.5 mg IVPUSH Q6H PRN PRN Reason: Agitation Morphine Sulfate (Morphine 2 Mg/Ml Syringe) 2 mg IVPUSH Q2H PRN PRN Reason: Dyspnea Last Admin: 03/27/21 18:55 Dose: 2 mg Documented by: Nystatin (Nystatin Topical Powder 15 Gm Bottle) 0 gm TOP BID [facility] Last Admin: 03/30/21 21:29 Dose: 15 gm Documented by: Prednisone (Prednisone 20 Mg Tab) 20 mg PO BID [facility] Sodium Chloride (Sodium Chloride 0.65% Nasal [place] 45 Ml Bottle) 0 ml NASBOTH ASDIRECTED PRN PRN Reason: Nasal Dryness Sodium Chloride (Sodium Chloride 0.9% 10 Ml Syringe) 10 ml FLUSH ASDIRECTED PRN PRN Reason: Keep Vein Open Last Admin: 03/31/21 06:40 Dose: 10 ml Documented by: Discontinued Medications Acetaminophen (Acetaminophen 325 Mg Tab) Confirm Administered Dose 650 mg .ROUTE .STK-MED ONE Stop: 03/28/21 22:25 Last Admin: 03/28/21 22:42 Dose: Not Given Documented by: Albuterol/Ipratropium (Albuterol/Ipratropium 3.0-0.5 Mg/3 Ml Neb Soln) 3 ml NEB QIDRT [facility] Calcium Gluconate (Calcium Gluconate 10% 1 Gm/10 Ml Sdv) 1 gm IVPUSH ONETIME ONE Stop: 03/27/21 12:46 Last Admin: 03/27/21 13:00 Dose: 1 gm Documented by: Calcium Gluconate (Calcium Gluconate 10% 1 Gm/10 Ml Sdv) 1 gm IVPUSH ONETIME ONE Stop: 03/27/21 23:36 Last Admin: 03/28/21 00:20 Dose: 1 gm Documented by: Carvedilol (Carvedilol 12.5 Mg Tab) 12.5 mg PO BIDMEALS [facility] Last Admin: 03/30/21 09:17 Dose: Not Given Documented by: Ceftriaxone Sodium (Ceftriaxone 1 Gm Vial) 1 gm IVPUSH Q24H [facility] Last Admin: 03/29/21 14:25 Dose: 1 gm Documented by: Ceftriaxone Sodium (Ceftriaxone 1 Gm Vial) 1 gm IVPUSH Q24H [facility] Last Admin: 03/30/21 13:17 Dose: 1 gm Documented by: Cholecalciferol (Cholecalciferol (Vitamin D3) 25 Mcg Tab) 50 mcg PO DAILY@1200 [facility] Last Admin: 03/28/21 12:00 Dose: Not Given Documented by: Diphenhydramine HCl (Diphenhydramine 50 Mg/Ml Sdv) 25 mg IVPUSH ONETIME ONE Stop: 03/27/21 21:50 Last Admin: 03/27/21 22:00 Dose: 25 mg Documented by: Docusate Sodium (Docusate Sodium 100 Mg Cap) 100 mg PO BID [facility] Last Admin: 03/28/21 20:34 Dose: Not Given Documented by: Fluconazole (Fluconazole 100 Mg Tab) 100 mg PO MoWeFr@0900 [facility] Furosemide (Furosemide 40 Mg/4 Ml Vial) 40 mg IVPUSH NOW ONE Stop: 03/27/21 12:46 Last Admin: 03/27/21 12:59 Dose: 40 mg Documented by: Furosemide (Furosemide 40 Mg/4 Ml Vial) 40 mg IVPUSH NOW ONE Stop: 03/27/21 23:38 Last Admin: 03/28/21 00:15 Dose: 40 mg Documented by: Sodium Chloride (Normal Saline) 1,000 mls @ 125 mls/hr IV ASDIRECTED [facility] Last Admin: 03/27/21 13:30 Dose: 125 mls/hr Documented by: Ceftriaxone Sodium 1 gm/ (Sodium Chloride) 50 mls @ 200 mls/hr IV ONETIME ONE Stop: 03/27/21 13:00 Last Admin: 03/27/21 13:16 Dose: 200 mls/hr Documented by: Azithromycin 500 mg/ Sodium (Chloride) 250 mls @ 250 mls/hr IV ONETIME ONE Stop: 03/27/21 13:46 Last Admin: 03/27/21 12:58 Dose: 250 mls/hr Documented by: Sodium Chloride (Normal Saline) 500 mls @ 999 mls/hr IV .BOLUS ONE Stop: 03/27/21 23:50 Last Admin: 03/27/21 23:35 Dose: 999 mls/hr Documented by: Azithromycin 500 mg/ Sodium (Chloride) 250 mls @ 250 mls/hr IV Q24H [facility] Last Admin: 03/30/21 09:05 Dose: 250 mls/hr Documented by: Lutein (Lutein 10 Mg Tab) 10 mg PO BEDTIME [facility] Last Admin: 03/28/21 20:34 Dose: Not Given Documented by: Magnesium Chloride (Magnesium Chloride 64 Mg Tab.Er) 64 mg PO DAILY@1200 [facility] Last Admin: 03/28/21 12:00 Dose: Not Given Documented by: Methylprednisolone Sodium Succinate (Methylprednisolone Sodium Succinate 125 Mg/2 Ml Sdv) 125 mg IVPUSH Q6H [facility] Last Admin: 03/31/21 06:40 Dose: 125 mg Documented by: Multivitamins/Minerals (Multivitamins With Iron/Calcium/Folic Acid/Minerals Tab) 1 tab PO DAILY [facility] Last Admin: 03/28/21 09:00 Dose: Not Given Documented by: Naloxone HCl (Naloxone 0.4 Mg/Ml Sdv) 0.2 mg IVPUSH ONETIME PRN PRN Reason: Shivering Last Admin: 03/27/21 23:40 Dose: 0.2 mg Documented by: Nystatin (Nystatin Topical Powder 15 Gm Bottle) 0 gm TOP BID [facility] Last Admin: 03/29/21 21:30 Dose: 1 applic Documented by: - Exam Quality Assessment: Supplemental Oxygen Urinary Catheter Total Time: 3Days 9Hours General: Alert, Oriented Lungs: Clear to Auscultation Cardiovascular: Regular Rate GI/Abdominal Exam: Normal Bowel Sounds, Soft - Patient Data Lab Results Last 24 hrs: Laboratory Results - last 24 hr 03/31/21 Range/Units 06:40 Sodium 143 (135-145) mmol/L Potassium 4.1 (3.5-5.3) mmol/L Chloride 99 L (100-110) mmol/L Carbon Dioxide 46 H* (21-32) mmol/L BUN 46 H (7-18) mg/dL Creatinine 1.7 H (0.55-1.02) mg/dL Est Cr Clr Drug Dosing 19.37 mL/min Estimated GFR (MDRD) 28 L (>60) BUN/Creatinine Ratio 27.1 H (9-20) Glucose 193 H (80-116) mg/dL Calcium 8.8 (8.6-10.2) mg/dL Result Diagrams: 03/30/21 06:40 03/31/21 06:40 Sepsis Event Note - Evaluation Sepsis Screening Result: No Definite Risk - Focused Exam Vital Signs: Vital Signs Temp Pulse Pulse Resp BP BP Pulse Ox 03/31/21 00:15 98 F 71 18 175/81 H 93 L 03/30/21 21:30 98.5 F 65 20 200/79 H 95 - Problem List & Annotations (1) COPD (chronic obstructive pulmonary disease) SNOMED Code(s): 69856240 Code(s): J44.9 - CHRONIC OBSTRUCTIVE PULMONARY DISEASE, UNSPECIFIED Status: Acute Current Visit: Yes Qualifiers: COPD type: chronic bronchitis (2) Obesity SNOMED Code(s): 054707032, 233668673 Code(s): E66.9 - OBESITY, UNSPECIFIED Status: Acute Current Visit: Yes Qualifiers: Obesity type: due to excess calories (3) CHF (congestive heart failure) SNOMED Code(s): 87176358 Code(s): I50.9 - HEART FAILURE, UNSPECIFIED Status: Acute Current Visit: Yes Qualifiers: Heart failure type: diastolic (4) CO2 narcosis SNOMED Code(s): 083034168, 328549009 Code(s): R06.89 - OTHER ABNORMALITIES OF BREATHING Status: Acute Current Visit: Yes (5) Acute kidney injury SNOMED Code(s): 60911054, 52941592 Code(s): N17.9 - ACUTE KIDNEY FAILURE, UNSPECIFIED Status: Acute Current Visit: Yes (6) Community acquired pneumonia SNOMED Code(s): 273464058 Code(s): J18.9 - PNEUMONIA, UNSPECIFIED ORGANISM Status: Acute Current Visit: Yes Qualifiers: Laterality: left (7) Hypercapnia SNOMED Code(s): 47859400 Code(s): R06.89 - OTHER ABNORMALITIES OF BREATHING Status: Acute Current Visit: Yes (8) Hyperkalemia SNOMED Code(s): 37388014 Code(s): E87.5 - HYPERKALEMIA Status: Acute Current Visit: Yes (9) Supplemental oxygen dependent SNOMED Code(s): 150405051454 Code(s): Z99.81 - DEPENDENCE ON SUPPLEMENTAL OXYGEN Status: Acute Current Visit: Yes (10) Encephalopathy SNOMED Code(s): 80792913 Code(s): G93.40 - ENCEPHALOPATHY, UNSPECIFIED Status: Acute Current Visit: Yes - Problem List Review Problem List Initiated/Reviewed/Updated: Yes - My Orders Last 24 Hours: My Active Orders 03/30/21 08:25 Incentive Spirometry [RT Incentive Spirometry] [RC] Q4HWA 03/30/21 08:55 OT Evaluation and Treatment [CONS] Routine PT Evaluation and Treatment [CONS] Routine Chest 1V Frontal [CR] Routine 03/30/21 18:00 Enoxaparin [Lovenox] 30 mg SUBCUT Q24H 03/31/21 21:00 predniSONE 20 mg PO BID - Plan Plan:: DC IV Meds. DC abx. Probable Discharge to tomorrow
[2021-03-31] MEDS: Albuterol/Ipratropium 3.0-0.5 MG/3 ML Neb Soln NEB SCH ×4 (09:34→21:00)
[2021-03-31] MEDS: Nystatin Topical Powder 15 GM Bottle TOP SCH ×2 (09:34→21:30)
[2021-03-31] MEDS: Aspirin 81 MG Tab.EC PO SCH (09:34)
[2021-03-31] MEDS: Acetaminophen 500 MG Tab PO SCH (09:35)
[2021-03-31] MEDS: Cyanocobalamin (Vitamin B12) 1,000 MCG Tab PO SCH (09:36)
[2021-03-31] MEDS: Enoxaparin 30 MG/0.3 ML Syringe SUBCUT SCH (17:33)
[2021-03-31] MEDS ORDERED: predniSONE 20 MG Tab PO SCH (18:00)
[2021-03-31 23:48] VITALS: BP 170/81
[2021-04-01 07:32] VITALS: PULSE 67
--- NOTE | 2021-04-01 22:05 | DISCH ---
DISCHARGE DATE: 04/01/2021 REASON FOR ADMISSION: 1. Community-acquired pneumonia. 2. Congestive heart failure exacerbation. 3. CO2 narcosis. 4. COPD. 5. Acute kidney injury. 6. Supplemental oxygen dependency. DISCHARGE DIAGNOSES: 1. Alteration of mental status due to CO2 narcosis, improved. 2. Congestive heart failure exacerbation, improved. 3. Community-acquired pneumonia, resolved. 4. Obesity hypoventilation. 5. Chronic obstructive pulmonary disease. 6. Acute kidney injury, improved. 7. Generalized weakness. BRIEF HISTORY: Luisa is an 89-year-old female brought in from home by the family. She presented with confusion, hypoxia, weakness, falls, and muscle jerks. These symptoms had been going on for a few days. An initial x-ray revealed a left lower lobe pneumonia. She has a history of obesity, COPD, and CHF along with hypertension. She has also had recurrent cellulitis of the lower extremities and edema. She was started on IV antibiotics, given some IV Lasix and improved slightly. On the second day, [facility] given for [facility]; [facility]. BiPAP was initiated, but she was not able to tolerate it. Subsequently, however, she improved significantly; and repeat chest x-ray 2 days ago revealed resolution of pneumonia and CHF. She became more alert, conversant, and felt much better. However, she is deemed too weak to support herself and to return to home-based or community based living. As such, she will be transferred to swing bed for physical rehab. /[id number] JOSE/SUDARSHAN
== END 2021-04-01 08:54 | disposition swing bed (61) | DRG 193 ==
LOC: FB.ED 11:17 → FB.MS 13:34
PROVIDERS: ADMIT Student in an Organized Health Care Education/Training Program; ATTEND Family Medicine
DX: J18.9 Pneumonia, unspecified organism (principal); E87.6 Hypokalemia; I50.33 Acute on chronic diastolic (congestive) heart failure; N17.9 Acute kidney failure, unspecified; I10 Essential (primary) hypertension; Z85.3 Personal history of malignant neoplasm of breast; Z91.013 Allergy to seafood; Z79.82 Long term (current) use of aspirin; Z79.899 Other long term (current) drug therapy; E66.2 Morbid (severe) obesity with alveolar hypoventilation; G93.40 Encephalopathy, unspecified; Z68.42 Body mass index [BMI] 45.0-49.9, adult; I11.0 Hypertensive heart disease with heart failure; E87.5 Hyperkalemia; Z66 Do not resuscitate; Z20.822 Contact with and (suspected) exposure to COVID-19; R53.1 Weakness; E66.9 Obesity, unspecified; I50.9 Heart failure, unspecified; J44.9 Chronic obstructive pulmonary disease, unspecified; R06.89 Other abnormalities of breathing; Z99.81 Dependence on supplemental oxygen; Z90.710 Acquired absence of both cervix and uterus
CPT/HCPCS: 0240U; 36415; 51702; 51798; 71045; 80048; 80053; 81001; 83880; 84132; 84484; 85025; 93005; 93010; 94150; 94640; 94660; 94762; 97161; 97166; 97530; 99284; A9270-GY; J0456; J0610; J0696; J1200; J1650; J1940; J2270; J2310; J2930; J7030; J7040; J7050; J7512; J7620-GY

== ENCOUNTER 2021-04-01 08:55 | Inpatient (IN) | payer MEDICARE, OTHER ==
[2021-04-01] MEDS: Nystatin Topical Powder 15 GM Bottle TOP SCH ×2 (08:30→22:54)
[2021-04-01] MEDS ORDERED: Albuterol 0.083% 2.5 MG/3 ML Neb Soln NEB PRN (09:30)
[2021-04-01] MEDS ORDERED: Fluticasone Propionate Nasal Spray 16 GM Bottle NASBOTH PRN (09:30)
[2021-04-01] MEDS ORDERED: Sodium Chloride 0.65% Nasal Spray 45 ML Bottle NASBOTH PRN (09:30)
[2021-04-01] MEDS ORDERED: Albuterol 8 GM Inhaler INH PRN (09:30)
[2021-04-01] MEDS ORDERED: Carboxymethylcellulose Sodium 0.5% Ophth Soln 15 ML Bottle EYEBOTH PRN ×2 (09:51→09:59)
[2021-04-01] MEDS: predniSONE 20 MG Tab PO SCH ×2 (10:10→17:47)
[2021-04-01] MEDS: Aspirin 81 MG Tab.EC PO SCH (10:10)
[2021-04-01] MEDS: Cyanocobalamin (Vitamin B12) 1,000 MCG Tab PO SCH (10:10)
[2021-04-01] MEDS: Potassium Chloride 10 MEQ Tab.ER PO SCH ×2 (10:12→17:46)
[2021-04-01] MEDS: Multivitamins with Iron/Calcium/Folic Acid/Minerals Tab PO SCH (10:12)
[2021-04-01] MEDS: Torsemide 20 MG Tab PO SCH (10:12)
[2021-04-01] MEDS: Amoxicillin 500 MG Cap PO SCH ×2 (10:12→22:52)
[2021-04-01] MEDS: Fluconazole 100 MG Tab PO SCH (10:15)
[2021-04-01] MEDS: Carvedilol 12.5 MG Tab PO SCH ×2 (10:16→17:47)
[2021-04-01] MEDS: Acetaminophen 500 MG Tab PO SCH (10:21)
[2021-04-01] MEDS: Cholecalciferol (Vitamin D3) 25 MCG Tab PO SCH (13:48)
[2021-04-01] MEDS: Magnesium Chloride 64 MG Tab.ER PO SCH (13:49)
[2021-04-01] MEDS: Docusate Sodium 100 MG Cap PO SCH (22:53)
[2021-04-02] MEDS: Docusate Sodium 100 MG Cap PO SCH ×2 (09:14→20:23)
[2021-04-02] MEDS: Amoxicillin 500 MG Cap PO SCH ×2 (09:14→20:22)
[2021-04-02] MEDS: Potassium Chloride 10 MEQ Tab.ER PO SCH ×2 (09:14→17:15)
[2021-04-02] MEDS: Torsemide 20 MG Tab PO SCH (09:14)
[2021-04-02] MEDS: predniSONE 20 MG Tab PO SCH ×2 (09:14→17:15)
[2021-04-02] MEDS: Carvedilol 12.5 MG Tab PO SCH ×2 (09:14→17:15)
[2021-04-02] MEDS: Aspirin 81 MG Tab.EC PO SCH (09:14)
[2021-04-02] MEDS: Cyanocobalamin (Vitamin B12) 1,000 MCG Tab PO SCH (09:15)
[2021-04-02] MEDS: Acetaminophen 500 MG Tab PO SCH (09:15)
[2021-04-02] MEDS: Nystatin Topical Powder 15 GM Bottle TOP SCH ×2 (09:15→20:23)
[2021-04-02] MEDS: Multivitamins with Iron/Calcium/Folic Acid/Minerals Tab PO SCH (09:16)
[2021-04-02] MEDS: Cholecalciferol (Vitamin D3) 25 MCG Tab PO SCH (12:20)
[2021-04-02] MEDS: Magnesium Chloride 64 MG Tab.ER PO SCH (12:20)
[2021-04-02] MEDS ORDERED: Azithromycin 500 MG Tab PO SCH (18:00)
[2021-04-02] MEDS ORDERED: Polyethylene Glycol 3350 Powder 17 GM Packet PO ONE (18:13)
[2021-04-03] MEDS: Acetaminophen 500 MG Tab PO SCH (08:22)
[2021-04-03] MEDS: Torsemide 20 MG Tab PO SCH (08:22)
[2021-04-03] MEDS: Amoxicillin 500 MG Cap PO SCH (08:23)
[2021-04-03] MEDS: Multivitamins with Iron/Calcium/Folic Acid/Minerals Tab PO SCH (08:23)
[2021-04-03] MEDS: Cyanocobalamin (Vitamin B12) 1,000 MCG Tab PO SCH (08:23)
[2021-04-03] MEDS: predniSONE 20 MG Tab PO SCH ×2 (08:23→17:25)
[2021-04-03] MEDS: Fluconazole 100 MG Tab PO SCH ×2 (08:23→08:29)
[2021-04-03] MEDS: Docusate Sodium 100 MG Cap PO SCH ×2 (08:23→20:22)
[2021-04-03] MEDS: Aspirin 81 MG Tab.EC PO SCH (08:23)
[2021-04-03] MEDS: Carvedilol 12.5 MG Tab PO SCH ×2 (08:23→17:25)
[2021-04-03] MEDS: Nystatin Topical Powder 15 GM Bottle TOP SCH ×2 (08:23→20:23)
[2021-04-03] MEDS: Potassium Chloride 10 MEQ Tab.ER PO SCH ×2 (08:23→17:24)
[2021-04-03] MEDS: Doxycycline 100 MG Tab PO SCH ×2 (10:33→20:24)
[2021-04-03] MEDS: Magnesium Chloride 64 MG Tab.ER PO SCH (13:35)
[2021-04-03] MEDS: Cholecalciferol (Vitamin D3) 25 MCG Tab PO SCH (13:35)
[2021-04-03] MEDS ORDERED: Bisacodyl 10 MG Supp RECTAL PRN (19:57)
[2021-04-04] MEDS: Carvedilol 12.5 MG Tab PO SCH ×2 (08:06→18:00)
[2021-04-04] MEDS: predniSONE 20 MG Tab PO SCH ×2 (08:09→18:02)
[2021-04-04] MEDS: Torsemide 20 MG Tab PO SCH (08:09)
[2021-04-04] MEDS: Potassium Chloride 10 MEQ Tab.ER PO SCH ×2 (08:09→18:02)
[2021-04-04] MEDS: Aspirin 81 MG Tab.EC PO SCH (08:09)
[2021-04-04] MEDS: Docusate Sodium 100 MG Cap PO SCH ×2 (08:09→21:03)
[2021-04-04] MEDS: Acetaminophen 500 MG Tab PO SCH (08:10)
[2021-04-04] MEDS: Doxycycline 100 MG Tab PO SCH ×2 (08:12→21:05)
[2021-04-04] MEDS: Cyanocobalamin (Vitamin B12) 1,000 MCG Tab PO SCH (08:12)
[2021-04-04] MEDS: Magnesium Chloride 64 MG Tab.ER PO SCH (12:26)
[2021-04-04] MEDS: Cholecalciferol (Vitamin D3) 25 MCG Tab PO SCH (12:26)
[2021-04-04] MEDS: Multivitamins with Iron/Calcium/Folic Acid/Minerals Tab PO SCH (12:26)
[2021-04-04] MEDS: Nystatin Topical Powder 15 GM Bottle TOP SCH ×2 (14:02→21:04)
[2021-04-05] MEDS: Potassium Chloride 10 MEQ Tab.ER PO SCH (08:34)
[2021-04-05] MEDS: predniSONE 20 MG Tab PO SCH ×2 (08:34→17:52)
[2021-04-05] MEDS: Aspirin 81 MG Tab.EC PO SCH (08:34)
[2021-04-05] MEDS: Carvedilol 12.5 MG Tab PO SCH ×2 (08:35→17:52)
[2021-04-05] MEDS: Docusate Sodium 100 MG Cap PO SCH ×2 (08:35→21:32)
[2021-04-05] MEDS: Doxycycline 100 MG Tab PO SCH ×2 (08:35→21:34)
[2021-04-05] MEDS: Torsemide 20 MG Tab PO SCH (08:35)
[2021-04-05] MEDS: Acetaminophen 500 MG Tab PO SCH (08:36)
[2021-04-05] MEDS: Nystatin Topical Powder 15 GM Bottle TOP SCH ×2 (08:36→21:32)
[2021-04-05] MEDS: Cyanocobalamin (Vitamin B12) 1,000 MCG Tab PO SCH (08:37)
[2021-04-05] MEDS: Cholecalciferol (Vitamin D3) 25 MCG Tab PO SCH (12:28)
[2021-04-05] MEDS: Magnesium Chloride 64 MG Tab.ER PO SCH (12:28)
[2021-04-05] MEDS: Multivitamins with Iron/Calcium/Folic Acid/Minerals Tab PO SCH (12:28)
[2021-04-06] MEDS: Cyanocobalamin (Vitamin B12) 1,000 MCG Tab PO SCH (08:23)
[2021-04-06] MEDS: Aspirin 81 MG Tab.EC PO SCH (08:23)
[2021-04-06] MEDS: predniSONE 20 MG Tab PO SCH (08:23)
[2021-04-06] MEDS: Doxycycline 100 MG Tab PO SCH ×2 (08:23→21:26)
[2021-04-06] MEDS: Acetaminophen 500 MG Tab PO SCH (08:23)
[2021-04-06] MEDS: Torsemide 20 MG Tab PO SCH (08:23)
[2021-04-06] MEDS: Docusate Sodium 100 MG Cap PO SCH ×2 (08:24→21:24)
[2021-04-06] MEDS: Carvedilol 12.5 MG Tab PO SCH ×2 (08:24→17:32)
[2021-04-06] MEDS: Nystatin Topical Powder 15 GM Bottle TOP SCH ×2 (08:25→21:25)
[2021-04-06] MEDS: Fluconazole 100 MG Tab PO SCH (08:31)
[2021-04-06] MEDS: Magnesium Chloride 64 MG Tab.ER PO SCH (11:14)
[2021-04-06] MEDS: Cholecalciferol (Vitamin D3) 25 MCG Tab PO SCH (11:14)
[2021-04-06] MEDS: Multivitamins with Iron/Calcium/Folic Acid/Minerals Tab PO SCH (11:14)
[2021-04-07] MEDS: Nystatin Topical Powder 15 GM Bottle TOP SCH ×2 (08:02→20:48)
[2021-04-07] MEDS: Docusate Sodium 100 MG Cap PO SCH ×2 (08:14→20:50)
[2021-04-07] MEDS: predniSONE 20 MG Tab PO SCH (08:15)
[2021-04-07] MEDS: Torsemide 20 MG Tab PO SCH (08:15)
[2021-04-07] MEDS: Aspirin 81 MG Tab.EC PO SCH (08:15)
[2021-04-07] MEDS: Doxycycline 100 MG Tab PO SCH ×2 (08:16→20:49)
[2021-04-07] MEDS: Acetaminophen 500 MG Tab PO SCH (08:16)
[2021-04-07] MEDS: Cyanocobalamin (Vitamin B12) 1,000 MCG Tab PO SCH (08:17)
[2021-04-07] MEDS: Carvedilol 12.5 MG Tab PO SCH ×2 (08:20→18:04)
[2021-04-07] MEDS: Cholecalciferol (Vitamin D3) 25 MCG Tab PO SCH (12:01)
[2021-04-07] MEDS: Multivitamins with Iron/Calcium/Folic Acid/Minerals Tab PO SCH (12:01)
[2021-04-07] MEDS: Magnesium Chloride 64 MG Tab.ER PO SCH (12:01)
[2021-04-07] MEDS ORDERED: Furosemide 20 MG Tab PO ONE (14:00)
[2021-04-08] MEDS: LORazepam 0.5 MG Tab PO PRN ×3 (00:15→21:24)
[2021-04-08] MEDS: Carvedilol 12.5 MG Tab PO SCH ×2 (08:51→17:48)
[2021-04-08] MEDS: Docusate Sodium 100 MG Cap PO SCH ×2 (08:51→21:26)
[2021-04-08] MEDS: predniSONE 20 MG Tab PO SCH (08:52)
[2021-04-08] MEDS: Torsemide 20 MG Tab PO SCH (08:52)
[2021-04-08] MEDS: Aspirin 81 MG Tab.EC PO SCH (08:52)
[2021-04-08] MEDS: Nystatin Topical Powder 15 GM Bottle TOP SCH ×2 (08:52→21:22)
[2021-04-08] MEDS: Acetaminophen 500 MG Tab PO SCH (08:52)
[2021-04-08] MEDS: Fluconazole 100 MG Tab PO SCH (08:53)
[2021-04-08] MEDS: Cyanocobalamin (Vitamin B12) 1,000 MCG Tab PO SCH (08:53)
[2021-04-08] MEDS: Doxycycline 100 MG Tab PO SCH ×2 (08:53→21:27)
[2021-04-08] MEDS: Magnesium Chloride 64 MG Tab.ER PO SCH (12:30)
[2021-04-08] MEDS: Cholecalciferol (Vitamin D3) 25 MCG Tab PO SCH (12:31)
[2021-04-08] MEDS: Multivitamins with Iron/Calcium/Folic Acid/Minerals Tab PO SCH (12:31)
[2021-04-09] MEDS: LORazepam 0.5 MG Tab PO PRN (05:04)
[2021-04-09] MEDS ORDERED: LORazepam 0.5 MG Tab PO PRN ×2 (08:01→17:35)
[2021-04-09] MEDS: Carvedilol 12.5 MG Tab PO SCH ×2 (08:31→17:56)
[2021-04-09] MEDS: Docusate Sodium 100 MG Cap PO SCH ×2 (08:31→21:44)
[2021-04-09] MEDS: Torsemide 20 MG Tab PO SCH (08:32)
[2021-04-09] MEDS: Nystatin Topical Powder 15 GM Bottle TOP SCH ×2 (08:33→21:48)
[2021-04-09] MEDS: Aspirin 81 MG Tab.EC PO SCH (08:33)
[2021-04-09] MEDS: predniSONE 10 MG Tab PO SCH (08:33)
[2021-04-09] MEDS: Acetaminophen 500 MG Tab PO SCH ×2 (08:34→21:44)
[2021-04-09] MEDS: Doxycycline 100 MG Tab PO SCH ×2 (08:35→21:44)
[2021-04-09] MEDS: Cyanocobalamin (Vitamin B12) 1,000 MCG Tab PO SCH (08:35)
[2021-04-09] MEDS: Cholecalciferol (Vitamin D3) 25 MCG Tab PO SCH (13:00)
[2021-04-09] MEDS: Magnesium Chloride 64 MG Tab.ER PO SCH (13:00)
[2021-04-09] MEDS: Multivitamins with Iron/Calcium/Folic Acid/Minerals Tab PO SCH (14:32)
[2021-04-10] MEDS: Carvedilol 12.5 MG Tab PO SCH ×2 (08:52→18:15)
[2021-04-10] MEDS: Docusate Sodium 100 MG Cap PO SCH ×2 (08:53→21:05)
[2021-04-10] MEDS: Cyanocobalamin (Vitamin B12) 1,000 MCG Tab PO SCH (08:53)
[2021-04-10] MEDS: Fluconazole 100 MG Tab PO SCH (08:54)
[2021-04-10] MEDS: Acetaminophen 500 MG Tab PO SCH ×2 (08:54→21:05)
[2021-04-10] MEDS: Torsemide 20 MG Tab PO SCH (08:54)
[2021-04-10] MEDS: predniSONE 10 MG Tab PO SCH (08:55)
[2021-04-10] MEDS: Aspirin 81 MG Tab.EC PO SCH (08:55)
[2021-04-10] MEDS: Nystatin Topical Powder 15 GM Bottle TOP SCH ×2 (08:56→21:04)
[2021-04-10] MEDS: Amoxicillin 500 MG Cap PO SCH ×2 (09:58→21:05)
[2021-04-10] MEDS: Multivitamins with Iron/Calcium/Folic Acid/Minerals Tab PO SCH (12:28)
[2021-04-10] MEDS: Magnesium Chloride 64 MG Tab.ER PO SCH (12:28)
[2021-04-10] MEDS: Cholecalciferol (Vitamin D3) 25 MCG Tab PO SCH (12:28)
[2021-04-11] MEDS: Carvedilol 12.5 MG Tab PO SCH ×2 (08:43→17:34)
[2021-04-11] MEDS: Docusate Sodium 100 MG Cap PO SCH ×2 (08:44→20:47)
[2021-04-11] MEDS: Amoxicillin 500 MG Cap PO SCH ×2 (08:44→20:47)
[2021-04-11] MEDS: Nystatin Topical Powder 15 GM Bottle TOP SCH ×2 (08:45→20:48)
[2021-04-11] MEDS: Torsemide 20 MG Tab PO SCH (08:45)
[2021-04-11] MEDS: Aspirin 81 MG Tab.EC PO SCH (08:45)
[2021-04-11] MEDS: predniSONE 10 MG Tab PO SCH (08:46)
[2021-04-11] MEDS: Acetaminophen 500 MG Tab PO SCH ×2 (08:47→20:47)
[2021-04-11] MEDS: Cyanocobalamin (Vitamin B12) 1,000 MCG Tab PO SCH (08:49)
[2021-04-11] MEDS: Multivitamins with Iron/Calcium/Folic Acid/Minerals Tab PO SCH (12:55)
[2021-04-11] MEDS: Magnesium Chloride 64 MG Tab.ER PO SCH (12:55)
[2021-04-11] MEDS: Cholecalciferol (Vitamin D3) 25 MCG Tab PO SCH (12:56)
[2021-04-12] MEDS: Carvedilol 12.5 MG Tab PO SCH ×2 (08:15→17:52)
[2021-04-12] MEDS: Amoxicillin 500 MG Cap PO SCH ×2 (08:21→21:16)
[2021-04-12] MEDS: Docusate Sodium 100 MG Cap PO SCH ×2 (08:22→21:17)
[2021-04-12] MEDS: Aspirin 81 MG Tab.EC PO SCH (08:23)
[2021-04-12] MEDS: Nystatin Topical Powder 15 GM Bottle TOP SCH ×2 (08:24→21:17)
[2021-04-12] MEDS: Torsemide 20 MG Tab PO SCH (08:24)
[2021-04-12] MEDS: Acetaminophen 500 MG Tab PO SCH ×2 (08:25→21:17)
[2021-04-12] MEDS: Cyanocobalamin (Vitamin B12) 1,000 MCG Tab PO SCH (08:26)
[2021-04-12] MEDS: Magnesium Chloride 64 MG Tab.ER PO SCH (12:16)
[2021-04-12] MEDS: Multivitamins with Iron/Calcium/Folic Acid/Minerals Tab PO SCH (12:17)
[2021-04-12] MEDS: Cholecalciferol (Vitamin D3) 25 MCG Tab PO SCH (12:17)
[2021-04-13] MEDS ORDERED: Tuberculin, PPD 5 Units/0.1 ML 1 ML MDV IDERM ONE (08:00)
[2021-04-13] MEDS: Nystatin Topical Powder 15 GM Bottle TOP SCH (09:47)
[2021-04-13] MEDS: Cyanocobalamin (Vitamin B12) 1,000 MCG Tab PO SCH (09:48)
[2021-04-13] MEDS: Docusate Sodium 100 MG Cap PO SCH (09:48)
[2021-04-13] MEDS: Acetaminophen 500 MG Tab PO SCH (09:49)
[2021-04-13] MEDS: Torsemide 20 MG Tab PO SCH (09:49)
[2021-04-13] MEDS: Amoxicillin 500 MG Cap PO SCH (09:50)
[2021-04-13] MEDS: Aspirin 81 MG Tab.EC PO SCH (09:50)
[2021-04-13] MEDS: Carvedilol 12.5 MG Tab PO SCH (09:50)
[2021-04-13] MEDS: Fluconazole 100 MG Tab PO SCH (09:52)
[2021-04-13 09:53] VITALS: BP 142/44; PULSE 58
== END 2021-04-13 10:55 | DRG 948 ==
LOC: FB.MS 08:55
PROVIDERS: ADMIT Student in an Organized Health Care Education/Training Program; ATTEND Family Medicine
DX: R53.81 Other malaise (principal); J90 Pleural effusion, not elsewhere classified; Z68.41 Body mass index [BMI] 40.0-44.9, adult; N17.9 Acute kidney failure, unspecified; E66.2 Morbid (severe) obesity with alveolar hypoventilation; I50.9 Heart failure, unspecified; H54.7 Unspecified visual loss; I11.0 Hypertensive heart disease with heart failure; J42 Unspecified chronic bronchitis; Z66 Do not resuscitate; Z20.822 Contact with and (suspected) exposure to COVID-19; Z51.5 Encounter for palliative care; Z99.81 Dependence on supplemental oxygen; Z91.013 Allergy to seafood; Z90.710 Acquired absence of both cervix and uterus; Z79.82 Long term (current) use of aspirin; Z79.52 Long term (current) use of systemic steroids; Z79.899 Other long term (current) drug therapy
CPT/HCPCS: 36415; 71046; 80048; 80053; 81001; 85025; 86580; 94150; 94640; 94760; 97110-GO; 97530-GO; 97530-GP; 97542-GO; A9270-GY; J7512; U0002